=== PATIENT | male | born 1945 | race Caucasian/White ===

== ENCOUNTER 2017-04-12 16:09 | Inpatient (IN) ==
[2017-04-12] MEDS ORDERED: LIDOCAINE 1%/EPI INJ 20 ML VIAL ONE (16:42)
--- NOTE | 2017-04-12 17:24 | General Surg History&Physical ---
Assessment and Plan - Time spent with patient Time spent with patient: Less than 30 minutes (1) Soft tissue neoplasm Status: Acute Assessment and plan: The nature of this tumor is unknown. It is unclear if it is benign or malignant. The extent of it is not clear and we need to further delineate this with CT scan. Clearly this will need to be resected. Coverage in this area may be problematic over his sternum. He may require a local flap. (2) Hemorrhage Status: Acute Assessment and plan: The active bleeding appears to be controlled and he is awake alert and stable. We will need to monitor for bleeding. We will need to check coagulation studies. We will check lab work. History of Present Illness Chief complaint: Bleeding from chest History of present illness: Mr. Schumacher is a 71 year old male Who says that he has not been to a doctor in 40 years. He says for about 2 years he has had an enlarging mass in the center of his chest and has not had problems with it however it is become more irritated and painful. He acutely began bleeding from it today and was transported by EMS with active bleeding from this mass. He was brought into the emergency department and his bleeding was controlled with cautery by the emergency physicians. Bleeding has since stopped. The mass has not been painful. He has not had syncope and does not feel like he needs to pass out. Medical,Surgical,& Family Hx - Medical History Rheumatology: History of;: Gout - Surgical History Surgical History: noncontributory - Family History Family History: noncontributory - Social History Smoking Status: Unknown if ever smoked Frequency of Alcohol Use: None Type of Drug Use: None Exam - Constitutional Vitals: Period Temp Pulse Resp BP Sys/King Pulse Ox Last 24 Hr 98.9 F-98.9 F 73-77 15-19 138-172/88-103 100-100 General appearance: no acute distress - Head Head exam: Present: normocephalic - Eye Eye exam: Absent: scleral icterus - ENT Mouth exam: Present: normal voice - Neck Neck exam: Present: trachea midline. Absent: lymphadenopathy, tenderness - Respiratory Respiratory exam: Present: clear to auscultation bilaterally, other (There is about a 7 cm exophytic friable mass just to the right of the midline at the costal sternal border. This is friable and nontender. There are cauterized surfaces and now no active bleeding. It seems to be mobile but appears that it may extend all the way down to the sternum.). Absent: accessory muscle use - Cardiovascular Cardiovascular exam: Present: RRR - GI/Abdominal GI/Abdominal exam: Present: normal bowel sounds, soft. Absent: distended, tenderness, rebound - Extremities Exam Extremities exam: Present: other (He has extensive gouty appearing deformities of both hands) - Neurological Exam Neurological exam: Present: alert, oriented X3. Absent: motor sensory deficit Speech: Present: normal - Skin Skin exam: Present: normal color - Constitutional Constitutional: Absent: anorexia, chills, fever(s), weight loss - Cardiovascular Cardiovascular: Absent: chest pain at rest, chest pain with activity, dyspnea, dyspnea on exertion, syncope - Respiratory Respiratory: Absent: dyspnea, hemoptysis, dyspnea on exertion - Gastrointestinal Gastrointestinal: Absent: abdominal pain, hematemesis, hematochezia, nausea, vomiting - Genitourinary Genitourinary: Absent: hematuria - Neurological Neurological: Absent: focal weakness, syncope - Endocrine Endocrine: Absent: polyuria Hematologic/Lymphatic: Present: easy bleeding. Absent: easy bruising Results - Diagnostic Findings Procedure: CT - chest: pending
[2017-04-12 17:26] LABS: Basophils % 0.5 % (0.0-0.8); Eosinophils # 0.2 10*3/uL (0.0-0.87); Eosinophils % 2.4 % (0.00-10.9); Hematocrit 33.5 VOL% (42.0-52.0); Hemoglobin 10.6 GM/DL (14.0-18.0); Immature Granulocytes % 0.4 %; Immature Granulocytes Absolute 0.03 #; Lymphocytes # 1.7 10*3/uL (1.4-4.0); Lymphocytes % 19.9 % (21.2-54.2); Mean Corpuscular HGB Conc 31.6 GM/DL (32-36); Mean Corpuscular Hemoglobin 29 PG (27-34); Mean Corpuscular Volume 90.1 FL (87-102); Mean Platelet Volume 10.1 FL (9.6-12.0); Monocytes # 0.7 10*3/uL (0.11-0.8); Monocytes % 8.7 % (1.7-12.7); Neutrophils # 5.8 10*3/uL (1.4-7.4); Neutrophils % 68.1 % (38.7-73.9); Platelet Count 245 T/CUMM (130-400); Red Blood Count 3.72 MC/CUMM (3.8-5.5); Red Cell Distribution Width 15.7 % (9.3-17.3); White Blood Count 8.5 T/CUMM (4-12)
[2017-04-12] MEDS ORDERED: ONDANSETRON 4 MG/2 ML VIAL IV PRN (17:28)
--- NOTE | 2017-04-12 17:32 | Emergency Department Note ---
Niranjan Altman Mantricia, am scribing for, and in the presence of, Golden Hardy MD 17:15. Hayely Altman Phillip K, MD, personally performed the services described in this documentation, ascribed by Vesna Ureña in my presence, and it is both accurate and complete 732 . Arrival - Arrival Chief Complaint: Non-Specific ED Nursing Triage Note: Pt arrived via ems with complaint of tumor that was outside of chest rupturing. EMS reports arterial spraying of blood from tumor. Estimated blood loss 500- 1000 ml per ems. Mode of Arrival: Stretcher Limitations: No Limitations Source: Patient - History of Present Illness HPI Narrative: Pt is a 71 y/o white male arriving to ED by EMS with c/o a ruptured chest tumor that onset 0800 today. Pt states that he was tearing a Gatorade from the case and maybe applied to much pressure on his chest and the tumor burst. He states that he tried to stop the bleeding but was never successful. Pt reports that the area had bled before; however, he has been able to stop the bleeding in the past. EMS reports that pt potentially lost a liter of blood. Pt states that although the tumor has been there for years, he has never considered seeing a doctor for it. He also reports that he has not seen a doctor in more than 4 years. 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 He reports no other complaints to ED. Onset (ago): year(s) Consistency: constant Severity: severe Severity scale (1-10): 3 Home Medications: Home Medications Medication Instructions Recorded Confirmed Type No Known Home Medications [No 04/12/17 04/12/17 History Known Home Medications] Review of System - Review of System 12 point system: reviewed and no additional remarkable complaints except as stated - Review of System Constitutional: Present: other (tumor on chest). Absent: chills, diaphoresis Eyes: Absent: discharge, pain Respiratory: Absent: cough Cardiovascular: Absent: chest pain Gastrointestinal: Absent: abdominal pain, nausea, vomiting, diarrhea Genitourinary male: Absent: urgency Musculoskeletal: Present: other (tophaceous gout) Medical,Surgical,& Family Hx - Social History Smoking Status: Unknown if ever smoked Frequency of Alcohol Use: None Type of Drug Use: None Exam Vital Signs: Vital Signs Temperature 98.9 F 04/12/17 16:13 Pulse Rate 73 04/12/17 16:28 Respiratory Rate 19 04/12/17 16:28 Blood Pressure 138/88 04/12/17 16:28 O2 Sat by Pulse Oximetry 100 04/12/17 16:28 - General General appearance: alert, in no apparent distress - Head Head exam: Present: atraumatic, normocephalic, normal inspection - Eye Eye exam: Present: normal appearance, PERRL, EOMI - ENT ENT exam: Present: normal exam, normal oropharynx, mucous membranes moist, TM's normal bilaterally, normal external ear exam - Neck Neck exam: Present: normal inspection, full ROM, trachea midline. Absent: tenderness - Respiratory Respiratory exam: Present: normal lung sounds bilaterally - Cardiovascular Cardiovascular exam: Present: regular rate, normal rhythm, normal heart sounds - Abdominal Exam Abdominal exam: Present: soft, normal bowel sounds. Absent: distention, tenderness, guarding, rebound - Back Exam Back exam: Present: normal inspection, full ROM. Absent: tenderness - Neurological Exam Neurological exam: Present: alert, oriented X3, CN II-XII intact, normal gait, reflexes normal - Psychiatric Psychiatric exam: Present: normal affect, normal mood - Skin Skin exam: Present: warm, dry, intact, normal color Course Course Narrative: Patient presented to the ED with bleeding from a chest wall mass. According to paramedics he apparently lost greater than 500 cc of blood at his house. Area was infiltrated with lidocaine with epinephrine. Patient had several arterial bleeders that were controlled with silver nitrate and electrocauterization. Dr. Kerline Wing was consulted and he will admit for excision of chest wall mass. There is no bleeding noted at the present time. 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 Churchill
[2017-04-12 17:45] LABS: Alanine Aminotransferase 16 U/L (16-61); Albumin 3.5 G/DL (3.4-5.0); Alkaline Phosphatase 71 U/L (45-117); Aspartate Amino Transferase 21 U/L (0-37); Bilirubin,Total < 0.39 MG/DL (0.2-1.0); Blood Urea Nitrogen 23 MG/DL (7-18); Calcium 7.9 MG/DL (8.5-10.1); Glucose 106 MG/DL (74-106); Osmolality,Calculated 282.4 MOS/KG (273-304); Potassium 4.2 MMOL/L (3.5-5.1); Sodium 140 MMOL/L (136-145); Total Protein 8.5 G/DL (6.4-8.3)
--- NOTE | 2017-04-12 18:30 | CT Report ---
CT chest wo con Indication: "Tumors on chest" CT CHEST WITHOUT CONTRAST DLP: 355 mGy*cm. One or more of the following dose reduction techniques was used: Automated exposure control, adjustment of the mA and/or kV according the patient size, or use of iterative reconstruction techniques. Comparison: None Technique: Axial noncontrast CT images of the chest were obtained. Findings: Normal heart size. No mediastinal adenopathy. No bulky hilar lymphadenopathy. Extensive coronary artery calcifications and calcified atheromatous disease of the aorta noted. There is some scarring of the lung bases which are otherwise clear. Pleural spaces are clear. There is a pedunculated 50 x 30 mm mass arising from the skin anterior mid chest wall. At least a portion of this appears to invade the underlying fat. No other skin lesions are identified. Bilateral axillary lymphadenopathy is present. Largest lymph node on the right is 15 mm short axis and on the left 15 mm. Degenerative changes thoracic spine noted. No infiltrative bone lesions are seen. Limited views of the upper abdomen appear relatively benign. Impression: 1. Large cutaneous mass anterior chest wall measuring 50 x 30 mm in size. Stranding extends in the subcutaneous fat. 2. Bilateral axillary lymphadenopathy. 3. Extensive calcified atheromatous disease. PROCEDURE INTERPRETED AT [facility] DEPARTMENT OF RADIOLOGY Final Report Signed by: Lobo Osman M.D.
--- NOTE | 2017-04-12 18:33 | XRay Report ---
XR chest 1V portable Indication: Shortness of breath and fever. Chest one view: Comparison 04/02/2010. Heart size remains borderline enlarged with stable mediastinal contour. Scarring at the medial right lung base is unchanged from earlier exam. No infiltrates. Nipple shadows overlie both lung bases. Impression: No acute cardiopulmonary disease. Borderline cardiomegaly. PROCEDURE INTERPRETED AT [facility] DEPARTMENT OF RADIOLOGY Final Report Signed by: Lobo Osman M.D.
[2017-04-12] MEDS: LACTATED RINGERS 1,000 ML IV SCH (21:45)
[2017-04-13] MEDS: LACTATED RINGERS 1,000 ML IV SCH ×4 (10:00→21:06)
--- NOTE | 2017-04-13 10:13 | General Surgery Progress Note ---
Assessment and Plan (1) Soft tissue neoplasm Status: Acute Assessment and plan: The nature of this tumor is unknown. It is unclear if it is benign or malignant. The extent of it is not clear and we need to further delineate this with CT scan. Clearly this will need to be resected. Coverage in this area may be problematic over his sternum. He may require a local flap. 04/13: He has no complaints and has had no further bleeding during the night. He has a mass on his right hand and on his chest. Ideally we would want to have a tissue diagnosis before going ahead with definitive excision. I will do an incisional biopsy today on both of these. This will need to be done in the operating room because of the risk of bleeding. He had significant bleeding before and we will need to be able to cauterize her suture this if needed. Current Visit: Yes (2) Hemorrhage Status: Acute Assessment and plan: The active bleeding appears to be controlled and he is awake alert and stable. We will need to monitor for bleeding. We will need to check coagulation studies. We will check lab work. Current Visit: Yes Subjective Patient reports: Present: feels better. Absent: still having pain, nausea, vomiting, shortness of breath Exam - Constitutional Vitals: Period Temp Pulse Resp BP Sys/King Pulse Ox Last 24 Hr 97.5 F-98.9 F 68-91 15-23 107-172/60-118 92-100 General appearance: no acute distress - Head Head exam: Present: normocephalic - Eye Eye exam: Absent: scleral icterus - Neck Neck exam: Present: trachea midline - Respiratory Respiratory exam: Present: other (Mass is not actively bleeding). Absent: accessory muscle use - Extremities Exam Extremities exam: Present: other (He has an ulcerated nonbleeding mass on his right lateral hand dorsal surface) Results - Labs CBC & BMP: 04/12/17 17:09 04/12/17 17:09 Lab Results: I have reviewed the past 24 hour labs Quality Measures - VTE Contraindication to Pharmacological VTE Prophylaxis: High Risk of Bleeding
--- NOTE | 2017-04-13 10:23 | EKG Report ---
Stationary ECG Study [facility] Test Date: 04/13/2017 10:22:27 AM Pat Name: MILE SHELL Department: Room: 324 Gender: M [employer]: : 1945 Requested by: Lamonte Churchill Order Number: [id number] Reading MD: CHILO FORD Intervals [place] Rate: 72 P: 48 WV: 162 QRS: 55 QRSD: 82 T: 52 QT: 348 QTc: 373 Interpretive Statements SINUS RHYTHM Electronically Signed On 04-13-17 15:43:32 CDT by CHILO FORD [email or web address]
[2017-04-13] MEDS: PANTOPRAZOLE 40 MG TABLET PO SCH (10:52)
[2017-04-13] MEDS ORDERED: LIDOCAINE 1%/EPI INJ 20 ML VIAL ONE (11:18)
--- NOTE | 2017-04-13 11:35 | Hospitalist Consult Note ---
Assessment and Plan - Time spent with patient Time spent with patient: Greater than 30 minutes (1) Malignant neoplasm of chest (wall) Status: Acute Assessment and plan: Defer to surgery. Agree with removal of mass. Will initiate IV clindamycin given the foul smell. 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 Current Visit: Yes (3) Skin ulcer Status: Acute Assessment and plan: He appears to have a left medial heel ulcer and right hand dorsal surface ulcer which has a fresh scab over it. His heel ulcer has some chronic erythema around the area with no pus drainage will initiate the patient on IV clindamycin. Current Visit: Yes History of Present Illness - Consult Narrative Reason for consult: Medical management History of present illness: Mr. Schumahcer is a pleasant 71 year old male with a medical history of untreated gout who presents with ulceration of a chest mass. Patient states he has had a chest mass that has been increasing in size for the last 2 years. He has put off seeing a doctor, and has not even seen a doctor for years, given certain family circumstances until recently when the chest mass began to ulcerate. He denies any fever, weight loss or chills. 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 These are large and visible. Patient has no further complaints. He denies any shortness of breath, chest pain, nausea, vomiting, diarrhea, melena, bright blood per rectum, hematemesis, fever, chills. CC: Lamonte Churchill III., - Home Medications and Allergies Home Medications: Home Medications Medication Instructions Recorded Confirmed Type No Known Home Medications [No 04/12/17 04/12/17 History Known Home Medications] Allergies/Adverse Reactions: Allergies Allergy/AdvReac Type Severity Reaction Status Date / Time No Known Allergies Allergy Verified 04/12/17 20:14 Medical,Surgical,& Family Hx - Medical History Rheumatology: History of;: Gout, Rheumatoid Arthritis Musculoskeletal: History of: Musculoskeletal Problems (fingers enlarged with limited ROM due to arthritis and gout.) - Social History Smoking Status: Unknown if ever smoked Frequency of Alcohol Use: None Type of Drug Use: None 12 point system: reviewed and no additional remarkable complaints except as stated Exam - Constitutional Vitals: Period Temp Pulse Resp BP Sys/King Pulse Ox Last 24 Hr 97.5 F-98.9 F 68-91 15-23 107-172/60-118 92-100 General appearance: no acute distress - Head Head exam: Present: normocephalic, atraumatic - Eye Eye exam: Present: EOMI Pupils: Present: NORA - ENT ENT exam: Present: normal exam - Neck Neck exam: Present: normal inspection - Respiratory Respiratory exam: Present: clear to auscultation bilaterally. Absent: rhonchi, wheezes - Cardiovascular Cardiovascular exam: Present: regular rate and rhythm. Absent: gallop, rubs, systolic murmur - GI/Abdominal GI/Abdominal exam: Present: normal bowel sounds, soft. 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 He also has large tophi both elbows and lower extremities. He has an ulceration on the plantar surface of his right hand in addition to the medial surface of his left heel. There is also a large ulcerating mass on his anterior chest wall with a foul smell.). Absent: calf tenderness Results - Labs CBC & BMP: 04/12/17 17:09 04/12/17 17:09 Lab Results: I have reviewed the past 24 hour labs Quality Measures - VTE Contraindication to Pharmacological VTE Prophylaxis: High Risk of Bleeding
--- NOTE | 2017-04-13 12:47 | Operative Note ---
Date of procedure: 04/13/17 Pre-op diagnosis: Ulcerated bleeding mass right chest 9 x 6 cm an ulcerated lesion right hand Post-op diagnosis: same Procedure: #1 incisional biopsy large ulcerated fungating right anterior chest mass 2. Incisional biopsy of 3 x 3.5 cm ulcerated mass right hand Findings and technique: After informed consent was obtained the patient was brought to the operating room and placed in supine position. The patient's chest and right hand were prepped and draped separately incision was made on the fungating mass removing about a 1 cm piece of tissue for pathology this was then cauterized to achieve good hemostasis. The right hand was then biopsied using separate instruments and a 1 cm piece of this was removed as well and good hemostasis obtained. Dressings were applied. We will await pathology before planning definitive excision. Anesthesia: local Surgeon / Physician: Lamonte Churchill III. Estimated blood loss: minimal Specimens: other (Incisional biopsies to pathology) Condition: stable Disposition: floor Results - Labs CBC & BMP: 04/12/17 17:09 04/12/17 17:09 Discharge Plan - Discharge Medications No Action No Known Home Medications [No Known Home Medications] - Follow Up or Referral - Forms/Instructions
[2017-04-13] MEDS: CLINDAMYCIN INJ 600 MG in PREMIX 1 EACH IV SCH ×3 (14:16→23:04)
[2017-04-13] MEDS: ACETAMINOPHEN 325 MG TABLET PO PRN (20:09)
[2017-04-14] MEDS: LACTATED RINGERS 1,000 ML IV SCH ×4 (05:12→20:18)
[2017-04-14] MEDS: CLINDAMYCIN INJ 600 MG in PREMIX 1 EACH IV SCH ×4 (05:12→23:03)
--- NOTE | 2017-04-14 07:12 | Physician Query Form ---
CLICK EDIT DOCUMENT TO SELECT QUERY ANSWER --> OK --> SIGN Maria E Wilkins RN, CCDS Certified Clinical Ju[employer] Liaison W) [phone] (f) [phone] [email or web address]: Make your selection(s) from the choices in EACH section by typing an "x" and enter comments in the comment section. Please use your independent medical judgment in providing your response. This request does not imply that any particular answer is desired or expected. CLINICAL INDICATORS: (Providers should not edit this section) The medical record indicates that the patient was admitted with a soft tissue neoplasm, tophaceous gout, creatinine 2.40#, GFR of 31# and the patient is on IV 'Fs. Clarify which of the following most accurately represents the patient's renal status: ( ) Acute kidney injury (non-traumatic) ( ) Acute renal failure ( ) Acute renal failure with underlying Chronic Kidney Disease (CKD) - please provide stage below ( ) Acute renal failure with pathological renal lesion ( ) Acute renal failure with necrosis ( ) tubular ( ) medullary ( ) cortical ( ) CKD - please provide stage below ( ) End Stage Renal Disease ( ) Acute interstitial nephritis ( ) Hepatorenal syndrome ( ) Other, please specify: (x ) Clinically unable to determine Chronic Kidney Disease Stages Source: National Kidney Disease Foundation ( ) Stage I (eGFR > or = 90) ( ) Stage II (eGFR 60 - 89) ( ) Stage III (eGFR 30 - 59) ( ) Stage IV (eGFR 15 - 29) ( ) Stage V (eGFR < 15 or dialysis) COMMENTS: PLEASE ALSO DOCUMENT RESPONSE IN PROGRESS NOTES AND/OR DISCHARGE SUMMARY Use of terms such as suspected, likely, or probable (associated with a specific diagnosis that is being evaluated, monitored, or treated as if it exists) are acceptable and can be restated in the discharge summary if not ruled out. MTDD
[2017-04-14 07:23] LABS: Calcium 8.5 MG/DL (8.5-10.1); Potassium 4.3 MMOL/L (3.5-5.1)
[2017-04-14] MEDS: PANTOPRAZOLE 40 MG TABLET PO SCH (08:31)
--- NOTE | 2017-04-14 08:51 | General Surgery Progress Note ---
Assessment and Plan (1) Soft tissue neoplasm Status: Acute Assessment and plan: The nature of this tumor is unknown. It is unclear if it is benign or malignant. The extent of it is not clear and we need to further delineate this with CT scan. Clearly this will need to be resected. Coverage in this area may be problematic over his sternum. He may require a local flap. 04/13: He has no complaints and has had no further bleeding during the night. He has a mass on his right hand and on his chest. Ideally we would want to have a tissue diagnosis before going ahead with definitive excision. I will do an incisional biopsy today on both of these. This will need to be done in the operating room because of the risk of bleeding. He had significant bleeding before and we will need to be able to cauterize her suture this if needed. 04/14: He feels well and has had no further bleeding. He is not having pain. I reviewed the pathology slides with pathology this morning and this lesion on his chest which should been hemorrhaging and bring him to the hospital looks like a basal cell carcinoma. This is consistent with pathology that I found from back [place] [address] Myles remove the larger lesion from his left chest. This looks like a separate primary. I wanted to make sure that this was not a melanoma or soft tissue tumor that required addressing his lymph nodes. I think we can go ahead and excise this in the procedure and risk of been discussed in detail with the patient. We will do this today so that we can get him home and reduce the risk of bleeding from this mass Current Visit: Yes (2) Hemorrhage Status: Acute Assessment and plan: The active bleeding appears to be controlled and he is awake alert and stable. We will need to monitor for bleeding. We will need to check coagulation studies. We will check lab work. Current Visit: Yes Subjective Patient reports: Present: feels better. Absent: nausea, vomiting, shortness of breath Exam - Constitutional Vitals: Period Temp Pulse Resp BP Sys/King Pulse Ox Last 24 Hr 97.5 F-99.2 F 64-86 16-20 112-188/56-93 94-100 General appearance: no acute distress - Respiratory Respiratory exam: Present: other. Absent: accessory muscle use Results - Labs CBC & BMP: 04/12/17 17:09 04/14/17 06:20 Lab Results: I have reviewed the past 24 hour labs Quality Measures - VTE Contraindication to Mechanical VTE Prophylaxis: Vascular Ulceration
--- NOTE | 2017-04-14 10:03 | Hospitalist Progress Note ---
Assessment and Plan - Time spent with patient Time spent with patient: Greater than 30 minutes (1) Malignant neoplasm of chest (wall) Status: Acute Assessment and plan: Defer to surgery. Continue IV antibiotics and he is to return to the OR today. 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 Current Visit: Yes (3) Skin ulcer Status: Acute Assessment and plan: He appears to have a left medial heel ulcer and right hand dorsal surface ulcer which has a fresh scab over it. His heel ulcer has some chronic erythema around the area with no pus drainage. Will continue clindamycin. Current Visit: Yes Hospitalist: Subjective Interval history: Patient feels fine this morning. Yesterday he had a biopsy of the chest mass which is most likely basal cell carcinoma and is returning to the OR today. Exam - Constitutional Vitals: Period Temp Pulse Resp BP Sys/King Pulse Ox Last 24 Hr 97.5 F-99.2 F 64-86 16-20 112-188/56-93 94-100 General appearance: no acute distress - Head Head exam: Present: normocephalic, atraumatic - Eye Eye exam: Present: EOMI Pupils: Present: NORA - ENT ENT exam: Present: normal exam - Neck Neck exam: Present: normal inspection - Respiratory Respiratory exam: Present: clear to auscultation bilaterally. Absent: rhonchi, wheezes - Cardiovascular Cardiovascular exam: Present: regular rate and rhythm. Absent: gallop, rubs, systolic murmur - GI/Abdominal GI/Abdominal exam: Present: normal bowel sounds, soft. Absent: distended, firm , guarding, tenderness, rebound - Extremities Exam Extremities exam: Present: normal inspection, other (Upper extremities with gout tophi and disfigurement. Chest mass.). Absent: calf tenderness, edema Results - Labs CBC & BMP: 04/12/17 17:09 04/14/17 06:20 Lab Results: I have reviewed the past 24 hour labs Quality Measures - VTE Contraindication to Mechanical VTE Prophylaxis: Vascular Ulceration
[2017-04-14] MEDS ORDERED: BUPIVACAINE MPF 0.25% /EPI 30 ML VIAL ONE (10:44)
[2017-04-14] MEDS ORDERED: LIDOCAINE 1%/EPI INJ 20 ML VIAL ONE (10:44)
[2017-04-14] MEDS ORDERED: PANTOPRAZOLE 40 MG VIAL IV ONE (11:03)
[2017-04-14] MEDS ORDERED: PROPOFOL 200 MG/20 ML VIAL IV ONE (12:05)
[2017-04-14] MEDS ORDERED: LIDOCAINE 2% 5 ML VIAL ONE (12:05)
[2017-04-14] MEDS ORDERED: MINERAL OIL (TOPICAL) 25 ML BOTTLE TOP ONE (12:41)
--- NOTE | 2017-04-14 12:54 | Operative Note ---
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 After successful induction of general anesthesia the patient's chest was prepped and draped in usual sterile fashion. Local anesthesia was infiltrated around the lesion which had an exudative material over it surface and was very friable. This measured at 5.5 cm wide by 9 cm vertically. A vertically oriented ellipse was made with 1 cm margins around the lesion and this was carried full thickness in the subcutaneous fat and the specimen removed. It was marked for orientation and sent to pathology who looked the specimen and felt that we had good margins are around the lesion and deep to the lesion. In excising this there was large arterial perforators extending into the base of the tumor and these had to be secured with 3-0 Vicryl [id number] sutures. Meticulous hemostasis was maintained. As I excised this lesion the defect sprung open to be 9.5 cm wide. This was a bit unexpected and I had thought that we could probably do a local rotational advancement flap for closure though this did not appear to be feasible. I was very reluctant to try doing an extensive flap or skin graft without knowing the definitive status of her margins and also the tumor itself seems somewhat colonized and contaminated. I elected to irrigate the wound and pack it open with moist saline gauze with plans to come back for definitive closure. There was no exposed fascia or periosteum. There was a healthy- appearing subcutaneous tissue at the base of the wound. Anesthesia: AVRILA, local Surgeon / Physician: Lamonte Churchill III. Estimated blood loss: other (50 mL) Specimens: other (Skin and subcutaneous tissue containing tumor to pathology) Condition: stable Disposition: PACU Results - Labs CBC & BMP: 04/12/17 17:09 04/14/17 06:20 Discharge Plan - Discharge Medications No Action No Known Home Medications [No Known Home Medications] - Follow Up or Referral - Forms/Instructions
[2017-04-14] MEDS ORDERED: HYDROmorphone 2 MG/1 ML VIAL IV PRN (13:12)
[2017-04-14] MEDS ORDERED: ONDANSETRON 4 MG/2 ML VIAL IV PRN (13:12)
--- NOTE | 2017-04-14 13:14 | Anesthesia Post-Op ---
Anesthesia Post OP - Post Ansesthetic Evaluation Patient seen in post op: Yes Resp: within normal limits CV: within normal limits Mental: within normal limits Temp: within normal limits [id number]: within normal limits Nausea and Vomiting: within normal limits Pain: within normal limits
[2017-04-14] MEDS ORDERED: SEVOFLURANE 1 UNIT/15 MINUTE INH ONE (13:17)
[2017-04-14] MEDS ORDERED: MIDAZOLAM 2 MG/2 ML VIAL ONE (13:17)
[2017-04-14] MEDS ORDERED: fentaNYL 100 MCG/2 ML VIAL ONE (13:17)
[2017-04-14] MEDS ORDERED: LACTATED RINGERS 1,000 ML IV SCH (13:30)
--- NOTE | 2017-04-14 14:33 | Nephrology Consult Note ---
History of Present Illness Chief complaint: Renal insufficiency History of present illness: Mr. Schumacher is a 71 year old male admitted with bleeding from an anterior chest wall mass. He has undergone excision of this mass which was a basal cell carcinoma. He was noted to have renal insufficiency at the time of admission. He is not seeing a physician in many years and has no known history of renal failure. He admits to having nephrolithiasis over 20 years ago. No stones since then. He denies obstructive symptoms or dysuria. He does have gout and has taken [id number] NSAIDs. Home Medications Medication Instructions Recorded Confirmed Type No Known Home Medications [No 04/12/17 04/12/17 History Known Home Medications] Allergies Allergy/AdvReac Type Severity Reaction Status Date / Time No Known Allergies Allergy Verified 04/12/17 20:14 Medical,Surgical,& Family Hx - Medical History Rheumatology: History of;: Gout, Rheumatoid Arthritis Musculoskeletal: History of: Musculoskeletal Problems (fingers enlarged with limited ROM due to arthritis and gout.) - Social History Smoking Status: Unknown if ever smoked Frequency of Alcohol Use: None Type of Drug Use: None Review of Systems 12 point system: reviewed and no additional remarkable complaints except as stated Exam - Vital Signs Vital signs: Period Temp Pulse Resp BP Sys/King Pulse Ox Last 24 Hr 97.5 F-99.2 F 64-99 16-20 112-160/56-103 94-100 Exam: Gen.: Alert and oriented x3. ENT: Pupils equal round reactive to light. EOMs intact. Mucous membranes moist. Neck: Supple. No JVD or bruit. Cardiovascular: Regular rate and rhythm. No murmur rub or gallop. Surgical dressing over the sternum Lungs: Clear Abdomen: Soft. Nontender. Positive bowel sounds. No organomegaly Extremities: No edema. 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 Tophi present over the elbows Results - Labs CBC & BMP: 04/12/17 17:09 04/14/17 06:20 Assessment and Plan (1) Chronic renal failure Status: Acute Assessment and plan: 71-year-old man admitted with: * Basal cell carcinoma, chest. Status post resection * Chronic renal failure. Baseline creatinine is not known. Ultrasound and urinalysis ordered * Gout * Rheumatoid arthritis Current Visit: Yes (2) Rheumatoid arthritis Status: Acute Current Visit: Yes (3) Gout Status: Acute Current Visit: Yes (4) Malignant neoplasm of chest (wall) Status: Acute Current Visit: Yes
--- NOTE | 2017-04-14 15:39 | Ultrasound Report ---
US renal Bilateral Indication: Chronic renal failure. RENAL ULTRASOUND: Grayscale and color Doppler imaging the kidneys performed. Right kidney measures 120 x 46 x 37 mm. Left kidney measures 106 x 48 x 47 mm. No hydronephrosis, mass, cyst or calcification identified on either side. Color Doppler flow at both renal mingo documented. Both kidneys demonstrate somewhat heterogeneous and increased echotexture throughout, with slightly lobulated contours. Impression: Nonspecific increased and heterogeneous echotexture of the kidneys consistent with medical renal disease. No obstructive pathology. PROCEDURE INTERPRETED AT [facility] DEPARTMENT OF RADIOLOGY Final Report Signed by: Lobo Osman M.D.
[2017-04-14 16:37] LABS: Apearance,Urine CLEAR (Clear); Bilirubin,Urine Negative (Negative); Blood, Urine Negative (Negative); Glucose,Urine (UA) Negative (Negative); Ketones,Urine Negative (Negative); Nitrite,Urine Negative (Negative); Protein,Urine Negative; RBC,Urine <1 /HPF (0-4); Urine Color Straw (Yellow); Urine Specific Gravity 1.006 (1.001-1.035); Urine Urobilinogen < 2.0 EU/DL (0.2-1.0)
--- NOTE | 2017-04-14 17:17 | Pathology Report from [facility] ---
[facility] ACCESSION # : [id number] PATIENT NAME : Shyam Schumacher ORDERING DR : SHAYLA BOSE III, MD CLINICAL HX: Chest soft tissue neoplasm - Right hand mass POST-OP DX: Same SPECIMEN INFO: #1 Chest tissue biopsy #2 Right hand biopsy GROSS DESCRIPTION: #1 Received in formalin labeled with the patients name SHYAM SCHUMACHER and #1 consists of a 1.1 x 0.8 cm hyperemic stevenson tissue fragment. Bisected and submitted in cassette #1.#2 Received in formalin labeled with the patients name SHYAM SCHUMACHER and #2 consists of three hyperemic stevenson-brown soft tissue fragments collectively measuring 1.4 x 0.6 cm. Submitted in cassette #2. DIAGNOSIS FOR SHYAM SCHUMACHER: #1 CHEST, BIOPSY: Ulcerated nodular basal cell carcinoma extending to specimen margins.#2 RIGHT HAND, BIOPSY: Ulcerated nodular basal cell carcinoma extending to specimen margins. COLLECTED DATE: 04/13/2017 [facility] REPORT DATE: 04/14/2017 ELECTRONICALLY SIGNED BY: Pramod Healy III, M.D. 04/14/2017 - 13:15:12 [facility] CENTERSeamus
[2017-04-15] MEDS: LACTATED RINGERS 1,000 ML IV SCH ×3 (01:18→18:22)
[2017-04-15] MEDS: MORPHINE 2 MG/1 ML SYRINGE IV PRN (03:43)
[2017-04-15 03:45] LABS: Basophils % 0.3 % (0.0-0.8); Eosinophils # 0.2 10*3/uL (0.0-0.87); Eosinophils % 3.2 % (0.00-10.9); Hematocrit 22.8 VOL% (42.0-52.0); Hemoglobin 6.8 GM/DL (14.0-18.0); Immature Granulocytes % 0.3 %; Immature Granulocytes Absolute 0.02 #; Lymphocytes # 1.9 10*3/uL (1.4-4.0); Lymphocytes % 29.6 % (21.2-54.2); Mean Corpuscular HGB Conc 29.8 GM/DL (32-36); Mean Corpuscular Hemoglobin 27 PG (27-34); Mean Corpuscular Volume 90.1 FL (87-102); Mean Platelet Volume 10.5 FL (9.6-12.0); Monocytes # 0.8 10*3/uL (0.11-0.8); Monocytes % 11.5 % (1.7-12.7); Neutrophils # 3.6 10*3/uL (1.4-7.4); Neutrophils % 55.1 % (38.7-73.9); Platelet Count 187 T/CUMM (130-400); Red Blood Count 2.53 MC/CUMM (3.8-5.5); Red Cell Distribution Width 15.6 % (9.3-17.3); White Blood Count 6.5 T/CUMM (4-12)
[2017-04-15 04:13] LABS: Calcium 8.1 MG/DL (8.5-10.1); Osmolality,Calculated 286.1 MOS/KG (273-304)
[2017-04-15] MEDS: CLINDAMYCIN INJ 600 MG in PREMIX 1 EACH IV SCH (05:19)
--- NOTE | 2017-04-15 05:50 | Event Note ---
No events overnight. Patient is resting comfortably in bed. Examination of his chest reveals a wound is clean with no evidence of infection and there is some bleeding on the gauze is removed with is controlled with direct pressure. Hemoglobin is down to 6.8. We will recheck this this morning and also get a type and screen with plan for transfusion if the repeat is confirming that the level is below 7 on the hemoglobin
[2017-04-15 06:24] LABS: Hematocrit 23.2 VOL% (42.0-52.0)
[2017-04-15 06:43] LABS: PT Patient Result 10.9 SECS; Partial Thromboplastin Time 29.4 SECS (0-40)
[2017-04-15] MEDS ORDERED: SODIUM CHLORIDE 0.9% 250 ML IV PRN (09:30)
[2017-04-15] MEDS: PANTOPRAZOLE 40 MG TABLET PO SCH (10:03)
[2017-04-15 10:12] LABS: % Iron Saturation 7.7 % (18-50); Ferritin 33.5 ng/ml (26-388)
[2017-04-15] MEDS: PIPERACILLIN/TAZOBACTAM 3,375 MG in SODIUM CHLORIDE 0.9% 100 ML IV SCH ×2 (10:46→18:32)
--- NOTE | 2017-04-15 10:59 | Hospitalist Progress Note ---
Assessment and Plan - Time spent with patient Time spent with patient: Greater than 30 minutes (1) Malignant neoplasm of chest (wall) Status: Acute Assessment and plan: Defer to surgery. S/P excision. BCC. Current Visit: Yes (2) Gout Status: Acute Assessment and plan: Start allopurinol. Current Visit: Yes (3) Skin ulcer Status: Acute Assessment and plan: Will switch to Zyvox and Zosyn. Obtain MRI of both feet Current Visit: Yes Hospitalist: Subjective Interval history: No complaints or overnight events. Exam - Constitutional Vitals: Period Temp Pulse Resp BP Sys/King Pulse Ox Last 24 Hr 97.5 F-99.9 F 72-108 15-20 90-167/49-103 93-100 General appearance: no acute distress - Head Head exam: Present: normocephalic, atraumatic - Eye Eye exam: Present: EOMI Pupils: Present: NORA - ENT ENT exam: Present: normal exam - Neck Neck exam: Present: normal inspection - Respiratory Respiratory exam: Present: clear to auscultation bilaterally. Absent: rhonchi, wheezes - Cardiovascular Cardiovascular exam: Present: regular rate and rhythm. Absent: gallop, rubs, systolic murmur - GI/Abdominal GI/Abdominal exam: Present: normal bowel sounds, soft. Absent: distended, firm , guarding, tenderness, rebound - Extremities Exam Extremities exam: Present: other (left achilles tendon area wound, foul smelling and purulent drainage. Right second toe wound.). Absent: calf tenderness, edema - Skin Skin exam: Present: other (large area of debridement on chest wall.) Results - Labs CBC & BMP: 04/15/17 06:04 04/15/17 02:56 Lab Results: I have reviewed the past 24 hour labs Quality Measures - VTE Contraindication to Mechanical VTE Prophylaxis: Vascular Ulceration
--- NOTE | 2017-04-15 12:10 | Nephrology Progress Note ---
Nephrology - PN: Subj Interval history: He is awake and alert. He denies shortness of breath. No new symptoms Exam (PN)-Nephrology - Vital Signs Vital signs: Period Temp Pulse Resp BP Sys/King Pulse Ox Last 24 Hr 97.5 F-99.9 F 71-108 15-20 90-167/49-103 93-100 Exam: ENT: Normal Cardiovascular: Regular rate and rhythm. No murmur rub or gallop Lungs: Clear Extremities: No edema - Lab 04/15/17 06:04 04/15/17 02:56 Most recent lab results Calcium 8.1 MG/DL (8.5-10.1) L 04/15/17 02:56 Assessment and Plan (1) Chronic renal failure Status: Acute Assessment and plan: 71-year-old man admitted with: * Basal cell carcinoma, chest. Status post resection * Chronic renal failure. Creatinine stable. Ultrasound shows chronic renal insufficiency. Urinalysis negative for protein or cells. He should avoid NSAIDs in the future * Gout Current Visit: Yes (2) Rheumatoid arthritis Status: Acute Current Visit: Yes (3) Gout Status: Acute Current Visit: Yes (4) Malignant neoplasm of chest (wall) Status: Acute Current Visit: Yes
[2017-04-15] MEDS: LINEZOLID INJ 600 MG in PREMIX 1 EACH IV SCH (15:03)
[2017-04-15] MEDS: ALLOPURINOL 100 MG TABLET PO SCH (20:09)
[2017-04-15 20:33] LABS: Hematocrit 31.1 VOL% (42.0-52.0); Hemoglobin 9.9 GM/DL (14.0-18.0)
[2017-04-16] MEDS: LACTATED RINGERS 1,000 ML IV SCH ×2 (00:44→10:20)
[2017-04-16] MEDS: LINEZOLID INJ 600 MG in PREMIX 1 EACH IV SCH ×2 (01:29→17:00)
[2017-04-16] MEDS: PIPERACILLIN/TAZOBACTAM 3,375 MG in SODIUM CHLORIDE 0.9% 100 ML IV SCH ×3 (02:42→18:58)
[2017-04-16 02:50] LABS: Magnesium 1.3 MG/DL (1.8-2.4); Potassium 3.9 MMOL/L (3.5-5.1)
[2017-04-16 03:41] LABS: Basophils % 0.3 % (0.0-0.8); Eosinophils # 0.2 10*3/uL (0.0-0.87); Eosinophils % 1.9 % (0.00-10.9); Hematocrit 31.1 VOL% (42.0-52.0); Hemoglobin 9.8 GM/DL (14.0-18.0); Immature Granulocytes % 0.3 %; Immature Granulocytes Absolute 0.02 #; Lymphocytes # 1.8 10*3/uL (1.4-4.0); Mean Corpuscular HGB Conc 31.5 GM/DL (32-36); Mean Corpuscular Hemoglobin 28 PG (27-34); Mean Corpuscular Volume 88.6 FL (87-102); Mean Platelet Volume 10.4 FL (9.6-12.0); Monocytes # 0.9 10*3/uL (0.11-0.8); Monocytes % 11.6 % (1.7-12.7); Neutrophils # 4.9 10*3/uL (1.4-7.4); Neutrophils % 62.9 % (38.7-73.9); Platelet Count 185 T/CUMM (130-400); Red Blood Count 3.51 MC/CUMM (3.8-5.5); Red Cell Distribution Width 15.4 % (9.3-17.3); White Blood Count 7.8 T/CUMM (4-12)
[2017-04-16] MEDS: ALLOPURINOL 100 MG TABLET PO SCH ×2 (08:56→20:57)
[2017-04-16] MEDS: PANTOPRAZOLE 40 MG TABLET PO SCH (08:56)
[2017-04-16] MEDS: SODIUM HYPOCHLORITE 0.25% IRRIG 473 ML BOTTLE TOP SCH (08:58)
--- NOTE | 2017-04-16 09:19 | Event Note ---
The patient received a blood transfusion yesterday which she responded to appropriately. There is no further bleeding from the wound. The dressings were taken down today and he has a small rim of reactive erythema but no evidence of invasive infection and no gangrenous tissue. Continue local wound care. Follow up final pathology.
[2017-04-16] MEDS ORDERED: MAGNESIUM SULF RIDER 4 GM in PREMIX 1 EACH IV ONE (09:27)
--- NOTE | 2017-04-16 13:11 | Hospitalist Progress Note ---
Assessment and Plan - Time spent with patient Time spent with patient: Greater than 30 minutes (1) Malignant neoplasm of chest (wall) Status: Acute Assessment and plan: Defer to surgery. S/P excision. BCC. Current Visit: Yes (2) Gout Status: Acute Assessment and plan: Start allopurinol. Current Visit: Yes (3) Skin ulcer Status: Acute Assessment and plan: Will switch to Zyvox and Zosyn. Obtain MRI of both feet Current Visit: Yes Hospitalist: Subjective Interval history: No complaints or overnight events. Exam - Constitutional Vitals: Period Temp Pulse Resp BP Sys/King Pulse Ox Last 24 Hr 97.8 F-100.5 F 70-88 14-20 115-169/62-93 95-100 General appearance: no acute distress - Head Head exam: Present: normocephalic, atraumatic - Eye Eye exam: Present: EOMI Pupils: Present: NORA - ENT ENT exam: Present: normal exam - Neck Neck exam: Present: normal inspection - Respiratory Respiratory exam: Present: clear to auscultation bilaterally. Absent: rhonchi, wheezes - Cardiovascular Cardiovascular exam: Present: regular rate and rhythm. Absent: gallop, rubs, systolic murmur - GI/Abdominal GI/Abdominal exam: Present: normal bowel sounds, soft. Absent: distended, firm , guarding, tenderness, rebound - Extremities Exam Extremities exam: Present: normal inspection, other (chest excision wound. Lower extremities within surgical dressing). Absent: calf tenderness, edema Results - Labs CBC & BMP: 04/16/17 01:53 04/16/17 01:53 Lab Results: I have reviewed the past 24 hour labs Quality Measures - VTE Contraindication to Mechanical VTE Prophylaxis: Vascular Ulceration
--- NOTE | 2017-04-16 13:35 | Nephrology Progress Note ---
Nephrology - PN: Subj Interval history: No new symptoms today Exam (PN)-Nephrology - Vital Signs Vital signs: Period Temp Pulse Resp BP Sys/King Pulse Ox Last 24 Hr 97.8 F-100.5 F 70-88 14-20 115-169/62-93 95-100 Exam: ENT: Normal Cardiovascular: Regular rate and rhythm. No murmur rub or gallop Lungs: Clear Extremities: No edema - Lab 04/16/17 01:53 04/16/17 01:53 Most recent lab results Calcium 8.0 MG/DL (8.5-10.1) L 04/16/17 01:53 Magnesium 1.3 MG/DL (1.8-2.4) L 04/16/17 01:53 Assessment and Plan (1) Chronic renal failure Status: Acute Assessment and plan: 71-year-old man admitted with: * Basal cell carcinoma, chest. Status post resection * Chronic renal failure. Creatinine stable. * Gout Current Visit: Yes (2) Rheumatoid arthritis Status: Acute Current Visit: Yes (3) Gout Status: Acute Current Visit: Yes (4) Malignant neoplasm of chest (wall) Status: Acute Current Visit: Yes
--- NOTE | 2017-04-16 16:32 | Magnetic Resonance Report ---
Exam: MR ankle LT wo con Date: 04/16/2017 9:54 AM Comparison: None Indication: Left Achilles tendon ulcer, history of gout Technique:[Multiple acquisitions were obtained including sagittal T1 and STIR, coronal T1 with and without fat saturation and STIR, and axial T1 and STIR scans. Scans were obtained on a 1.5 Mira magnet.] Findings: Unfortunately the scans are degraded by motion artifact. Small ankle joint effusion. There are multiple T1 hypointensities throughout the joint spaces and along the tendons, especially the Achilles tendon and anterior tibial tendon. The finding at the level of the Achilles tendon involves a 50 x 22 x 17 mm area. No evidence of fracture or osteomyelitis with extensive marginal erosions.. Soft tissue edema with reported skin ulceration medial to the Achilles tendon. Calcaneal osteophytes are noted. Impression: Motion artifact. Small ankle joint effusion with no fracture or osteomyelitis. 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 The extensive involvement of the Achilles tendon makes it difficult to exclude a prior prior partial tear. No evidence of definite rupture. Adjacent apparent skin ulceration with soft tissue edema/fluid. PROCEDURE INTERPRETED AT [facility] DEPARTMENT OF RADIOLOGY Final Report Signed by: Dr. Анна Bryant
--- NOTE | 2017-04-16 16:33 | Magnetic Resonance Report ---
Exam: MR foot RT wo con Date: 04/16/2017 9:54 AM Comparison: None Indication: Right second toe erythema with chronic ulcer, history of gout Technique:[Multiple acquisitions were obtained including sagittal T1, STIR, coronal T1 and STIR, and axial T1, T2*GRE, and STIR scans. Scans were obtained on a 1.5 Mira magnet.] Findings: Unfortunately the scans are degraded by motion artifact. Small ankle joint effusion. Soft tissue swelling including the right second toe location with reported skin ulceration. Diffuse fluid in the plantar fascial location. No evidence of definite fracture or osteomyelitis. Hallux valgus deformity. Multiple T1 and T2 hypointensities involving most joints with marginal erosions. Findings are more pronounced at the level of the great toe and the fifth toe. Additional involvement of the tendons, especially the Achilles tendon. No evidence of definite tendon rupture. Impression: The scans are degraded by motion artifact. No evidence of definite osteomyelitis. Minimal soft tissue swelling at the level of the left second toe with reported skin ulceration. 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 Additional findings which can be seen with plantar fasciitis. PROCEDURE INTERPRETED AT [facility] DEPARTMENT OF RADIOLOGY Final Report Signed by: Dr. Анна Bryant
[2017-04-16] MEDS: ACETAMINOPHEN 325 MG TABLET PO PRN (20:51)
[2017-04-17] MEDS: LINEZOLID INJ 600 MG in PREMIX 1 EACH IV SCH ×2 (02:22→15:29)
[2017-04-17] MEDS: PIPERACILLIN/TAZOBACTAM 3,375 MG in SODIUM CHLORIDE 0.9% 100 ML IV SCH ×3 (03:29→18:18)
[2017-04-17 06:16] LABS: Calcium 8.4 MG/DL (8.5-10.1); Osmolality,Calculated 280.4 MOS/KG (273-304); Potassium 3.8 MMOL/L (3.5-5.1)
[2017-04-17] MEDS: LACTATED RINGERS 1,000 ML IV SCH ×3 (07:44→18:18)
--- NOTE | 2017-04-17 08:29 | General Surgery Progress Note ---
Assessment and Plan (1) Soft tissue neoplasm Status: Acute Assessment and plan: The nature of this tumor is unknown. It is unclear if it is benign or malignant. The extent of it is not clear and we need to further delineate this with CT scan. Clearly this will need to be resected. Coverage in this area may be problematic over his sternum. He may require a local flap. 04/13: He has no complaints and has had no further bleeding during the night. He has a mass on his right hand and on his chest. Ideally we would want to have a tissue diagnosis before going ahead with definitive excision. I will do an incisional biopsy today on both of these. This will need to be done in the operating room because of the risk of bleeding. He had significant bleeding before and we will need to be able to cauterize her suture this if needed. 04/14: He feels well and has had no further bleeding. He is not having pain. I reviewed the pathology slides with pathology this morning and this lesion on his chest which should been hemorrhaging and bring him to the hospital looks like a basal cell carcinoma. This is consistent with pathology that I found from back [place] [address] Myles remove the larger lesion from his left chest. This looks like a separate primary. I wanted to make sure that this was not a melanoma or soft tissue tumor that required addressing his lymph nodes. I think we can go ahead and excise this in the procedure and risk of been discussed in detail with the patient. We will do this today so that we can get him home and reduce the risk of bleeding from this mass Chest dressing is dry chest dressing is dry with no signs of bleeding 04/17: We have had no problems with bleeding and are awaiting pathology on the malignancy on his chest. If his margins are negative then we can look at doing a skin graft. 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 This is probably been partly destroyed by gout and venous stasis disease. This may be the source of his fever. Current Visit: Yes (2) Hemorrhage Status: Acute Assessment and plan: The active bleeding appears to be controlled and he is awake alert and stable. We will need to monitor for bleeding. We will need to check coagulation studies. We will check lab work. Current Visit: Yes Subjective Patient reports: Present: feels better, fever. Absent: pain is less Exam - Constitutional Vitals: Period Temp Pulse Resp BP Sys/King Pulse Ox Last 24 Hr 98.6 F-101.8 F 73-90 16-18 105-183/57-93 94-100 General appearance: no acute distress - Respiratory Respiratory exam: Present: other Results - Labs CBC & BMP: 04/16/17 01:53 04/17/17 05:42 Lab Results: I have reviewed the past 24 hour labs - Diagnostic Findings Procedure: MRI: report reviewed by me Quality Measures - VTE Contraindication to Mechanical VTE Prophylaxis: Vascular Ulceration
[2017-04-17] MEDS: ALLOPURINOL 100 MG TABLET PO SCH ×2 (09:18→20:58)
[2017-04-17] MEDS: PANTOPRAZOLE 40 MG TABLET PO SCH (09:18)
[2017-04-17] MEDS: SODIUM HYPOCHLORITE 0.25% IRRIG 473 ML BOTTLE TOP SCH (09:18)
--- NOTE | 2017-04-17 10:27 | Hospitalist Progress Note ---
Assessment and Plan - Time spent with patient Time spent with patient: Greater than 30 minutes (1) Malignant neoplasm of chest (wall) Status: Acute Assessment and plan: Defer to surgery. S/P excision. BCC. Current Visit: Yes (2) Cellulitis Status: Acute Assessment and plan: Recent fever. Likely due to cellulitis. Continue antibiotics. Current Visit: Yes (3) Gout Status: Acute Assessment and plan: Start allopurinol. Current Visit: Yes Hospitalist: Subjective Interval history: temperature of 101.8 overnight, no complaints. Exam - Constitutional Vitals: Period Temp Pulse Resp BP Sys/King Pulse Ox Last 24 Hr 98.6 F-101.8 F 73-90 16-18 105-183/57-93 94-100 General appearance: no acute distress - Head Head exam: Present: normocephalic, atraumatic - Eye Eye exam: Present: EOMI Pupils: Present: NORA - ENT ENT exam: Present: normal exam - Neck Neck exam: Present: normal inspection - Respiratory Respiratory exam: Present: clear to auscultation bilaterally. Absent: rhonchi, wheezes - Cardiovascular Cardiovascular exam: Present: regular rate and rhythm. Absent: gallop, rubs, systolic murmur - GI/Abdominal GI/Abdominal exam: Present: normal bowel sounds, soft. Absent: distended, firm , guarding, tenderness, rebound - Extremities Exam Extremities exam: Present: normal inspection, other (chest surgical debridement. bilateral deformity due to severe gouty tophi. All large joints involved.). Absent: calf tenderness, edema Results - Labs CBC & BMP: 04/16/17 01:53 04/17/17 05:42 Lab Results: I have reviewed the past 24 hour labs Quality Measures - VTE Contraindication to Mechanical VTE Prophylaxis: Vascular Ulceration
--- NOTE | 2017-04-17 10:52 | Physician Query Form ---
CLICK EDIT DOCUMENT TO SELECT QUERY ANSWER --> OK --> SIGN Maria E Wilkins RN, CCDS Certified Clinical Application Systems Engineer W) [phone] (f) [phone] [email or web address]: Make your selection(s) from the choices in EACH section by typing an "x" and enter comments in the comment section. Please use your independent medical judgment in providing your response. This request does not imply that any particular answer is desired or expected. CLINICAL INDICATORS: (Providers should not edit this section) The medical record indicates that the patient was admitted with a soft tissue neoplasm, had surgery, HH dropped to 6.8/ 22.8 and the patient was given 3 units of blood. Based on the above, could you clarify which of the following conditions you are evaluating, treating, and/or monitoring? ( ) Blood loss anemia ( ) acute ( ) chronic ( ) acute on chronic ( x) Acute blood loss anemia on baseline chronic anemia ( ) Acute blood loss anemia as a complication of a procedure ( ) Iron deficiency anemia not associated with blood loss ( ) Dilutional anemia due to IV fluids ( ) Anemia due to chemotherapy ( ) Anemia due to neoplastic disease ( ) Anemia due to chronic kidney disease ( ) Pernicious anemia ( ) Aplastic anemia ( ) Hemolytic anemia ( ) immune ( ) non-immune - please specify cause: ( ) Anemia due to other condition, please specify: ( ) Clinically unable to determine COMMENTS: PLEASE ALSO DOCUMENT RESPONSE IN PROGRESS NOTES AND/OR DISCHARGE SUMMARY Use of terms such as suspected, likely, or probable (associated with a specific diagnosis that is being evaluated, monitored, or treated as if it exists) are acceptable and can be restated in the discharge summary if not ruled out. MTDD
--- NOTE | 2017-04-17 11:32 | Nephrology Progress Note ---
Nephrology - PN: Subj Interval history: He has some musculoskeletal back pain today. No shortness of breath. He was febrile this morning Exam (PN)-Nephrology - Vital Signs Vital signs: Period Temp Pulse Resp BP Sys/King Pulse Ox Last 24 Hr 98.6 F-101.8 F 73-90 16-18 105-183/57-93 94-100 Exam: ENT: Normal Cardiovascular: Regular rate and rhythm. No murmur rub or gallop Lungs: Clear Extremities: No edema - Lab 04/16/17 01:53 04/17/17 05:42 Most recent lab results Calcium 8.4 MG/DL (8.5-10.1) L 04/17/17 05:42 Magnesium 1.3 MG/DL (1.8-2.4) L 04/16/17 01:53 Assessment and Plan (1) Chronic renal failure Status: Acute Assessment and plan: 71-year-old man admitted with: * Basal cell carcinoma, chest. Status post resection * Chronic renal failure. Creatinine stable. * Gout Current Visit: Yes (2) Rheumatoid arthritis Status: Acute Current Visit: Yes (3) Gout Status: Acute Current Visit: Yes (4) Malignant neoplasm of chest (wall) Status: Acute Current Visit: Yes
--- NOTE | 2017-04-17 12:26 | Pathology Report from [facility] ---
[facility] [place] : [id number] PATIENT NAME : Shyam Schumacher ORDERING DR : SHAYLA BOSE III, MD CLINICAL HX: Soft tissue neoplasm POST-OP DX: Same SPECIMEN INFO: Mid chest wall tumor, wide excision skin cancer, check margins GROSS DESCRIPTION: The specimen labeled CHEST WALL TUMOR consists of a 9.0 x 6.0 x 1.3 cm skin ellipse with a fungating mass measuring 8.0 x 7.0 x 3.0 cm. The superior margin is given the 12 oclock position with the 12-3 oclock margin inked blue, the 3-6 oclock green, the 6-9 oclock red, and the 9-12 oclock orange. Mostly the mass comes to within 0.7 cm of both the medial and lateral margins and 12-3 oclock and 9-12 oclock. Sections submitted: A and B 12-3 oclock, C thru E 3-6 oclock, F thru H 6-9 oclock, I thru K 9-12 oclock, L insurance account representative section through central tumor and deep margin. DIAGNOSIS FOR SHYAM SCHUMACHER: SKIN CHEST WALL: Ulcerated nodular basal cell carcinoma, inked specimen margins free of tumor. COLLECTED DATE: 04/14/2017 [facility] REPORT DATE: 04/17/2017 ELECTRONICALLY SIGNED BY: Pramod Healy III, M.D. 04/17/2017 - 9:38:47 [facility]ITAL[facility]
[2017-04-17] MEDS: ACETAMINOPHEN 325 MG TABLET PO PRN (16:26)
[2017-04-18] MEDS: LACTATED RINGERS 1,000 ML IV SCH ×4 (01:42→20:18)
[2017-04-18] MEDS: LINEZOLID INJ 600 MG in PREMIX 1 EACH IV SCH (02:05)
[2017-04-18] MEDS: PIPERACILLIN/TAZOBACTAM 3,375 MG in SODIUM CHLORIDE 0.9% 100 ML IV SCH ×2 (03:00→11:16)
--- NOTE | 2017-04-18 07:18 | Event Note ---
He feels well. Margins on his chest wound are negative. I think we can go ahead with a skin graft for definitive coverage. I am going to defer treatment of his hand and let him see plastic surgery as an outpatient after his discharge. His white blood cell count is normal. MRI of his ankle and foot have been noted and this all appears to be chronic destruction from long- standing gout.
[2017-04-18 07:24] LABS: Calcium 8.3 MG/DL (8.5-10.1); Osmolality,Calculated 272.8 MOS/KG (273-304)
[2017-04-18] MEDS ORDERED: DIAZEPAM 5 MG TABLET PO ONE (07:55)
[2017-04-18] MEDS: SODIUM HYPOCHLORITE 0.25% IRRIG 473 ML BOTTLE TOP SCH (08:28)
[2017-04-18] MEDS: MORPHINE 2 MG/1 ML SYRINGE IV PRN ×2 (09:02→17:43)
[2017-04-18] MEDS ORDERED: PROPOFOL 200 MG/20 ML VIAL IV ONE (11:00)
[2017-04-18] MEDS ORDERED: LIDOCAINE 100 MG/5 ML SYRINGE ONE (11:00)
--- NOTE | 2017-04-18 11:06 | Hospitalist Progress Note ---
Assessment and Plan - Time spent with patient Time spent with patient: Greater than 30 minutes (1) Malignant neoplasm of chest (wall) Status: Acute Assessment and plan: Defer to surgery. S/P excision. BCC. Current Visit: Yes (2) Cellulitis Status: Acute Assessment and plan: I do believe the patient's fever is secondary to his infection, most likely secondary to gout. Though he did have some mild cellulitis this can be treated with clindamycin. We will switch the patient from his current regimen to clindamycin. Current Visit: Yes (3) Gout Status: Acute Assessment and plan: Continue allopurinol. Current Visit: Yes Hospitalist: Subjective Interval history: Continues have very low-grade fevers. Otherwise doing well. Exam - Constitutional Vitals: Period Temp Pulse Resp BP Sys/Kign Pulse Ox Last 24 Hr 98.4 F-100.5 F 76-93 16-20 124-160/69-94 94-99 General appearance: no acute distress - Head Head exam: Present: normocephalic, atraumatic - Eye Eye exam: Present: EOMI Pupils: Present: NORA - ENT ENT exam: Present: normal exam - Neck Neck exam: Present: normal inspection - Respiratory Respiratory exam: Present: clear to auscultation bilaterally. Absent: rhonchi, wheezes - Cardiovascular Cardiovascular exam: Present: regular rate and rhythm. Absent: gallop, rubs, systolic murmur - GI/Abdominal GI/Abdominal exam: Present: normal bowel sounds, soft. Absent: distended, firm , guarding, tenderness, rebound - Extremities Exam Extremities exam: Present: normal inspection, other (Left heel wound). Absent: calf tenderness, edema - Skin Skin exam: Present: other (Large surgical incision anterior chest) Results - Labs CBC & BMP: 04/16/17 01:53 04/18/17 05:46 Lab Results: I have reviewed the past 24 hour labs Quality Measures - VTE Contraindication to Pharmacological VTE Prophylaxis: High Risk of Bleeding Specialty Discharge - Follow Up or Referrals Follow up with: Joey De La Rosa MD [Physician] - 04/20/17 10:30 am
[2017-04-18] MEDS ORDERED: MINERAL OIL (TOPICAL) 25 ML BOTTLE TOP ONE (13:01)
[2017-04-18] MEDS: ALLOPURINOL 100 MG TABLET PO SCH ×2 (13:03→21:19)
[2017-04-18] MEDS: PANTOPRAZOLE 40 MG TABLET PO SCH (13:03)
[2017-04-18] MEDS ORDERED: BACITRACIN OINT 0.9 GM PACK TOP ONE (13:09)
[2017-04-18] MEDS ORDERED: LIDOCAINE 1%/EPI INJ 20 ML VIAL ONE (13:09)
[2017-04-18] MEDS ORDERED: BUPIVACAINE MPF 0.25% /EPI 30 ML VIAL ONE (13:09)
--- NOTE | 2017-04-18 14:32 | Operative Note ---
Date of procedure: 04/18/17 Pre-op diagnosis: Large open wound mid chest Post-op diagnosis: same Procedure: Split thickness skin graft mid chest large open wound 9 x 11 cm Findings and technique: After informed consent was obtained the patient was brought the operating room placed in supine position. After successful induction of general anesthesia the patient's chest and right lower extremity were prepped and draped in usual sterile fashion. The wound was inspected and had all viable tissue. I scraped away some of the debris and clean the wound but it really did not require any debridement. A few small bleeders were cauterized. I then harvested split thickness skin graft from the right thigh taking several 5 cm wide pieces and laying these over the wound after admission at 1.5-1. Skin graft was secured in place with skin clips and a sterile bolster dressing was placed by suturing this in place with 2-0 silk sutures with a bulky dressing over the skin graft. Against the skin graft was Adaptic with antibiotic ointment. A large OpSite was placed at the skin donor site. Anesthesia: GETA, local Surgeon / Physician: Lamonte Churchill III. Estimated blood loss: none Specimens: none sent Condition: stable Disposition: PACU Results - Labs CBC & BMP: 04/16/17 01:53 04/18/17 05:46 Discharge Plan - Discharge Medications No Action No Known Home Medications [No Known Home Medications] - Follow Up or Referral Follow Up: Joey De La Rosa MD [Physician] - 04/20/17 10:30 am - Forms/Instructions
[2017-04-18] MEDS ORDERED: fentaNYL 100 MCG/2 ML VIAL ONE (14:45)
[2017-04-18] MEDS ORDERED: SEVOFLURANE 1 UNIT/15 MINUTE INH ONE (14:45)
[2017-04-18] MEDS ORDERED: MIDAZOLAM 2 MG/2 ML VIAL ONE (14:45)
[2017-04-18] MEDS: CLINDAMYCIN INJ 600 MG in PREMIX 1 EACH IV SCH ×2 (16:48→18:34)
--- NOTE | 2017-04-18 21:58 | Nephrology Progress Note ---
Nephrology - PN: Subj Interval history: No S OB or GI symptoms. Exam (PN)-Nephrology - Vital Signs Vital signs: Period Temp Pulse Resp BP Sys/King Pulse Ox Last 24 Hr 98.5 F-99.9 F 76-108 16-24 124-170/69-97 94-100 Exam: ENT: Normal Cardiovascular: Regular rate and rhythm. No murmur rub or gallop Lungs: Clear Extremities: No edema - Lab 04/16/17 01:53 04/18/17 05:46 Most recent lab results Calcium 8.3 MG/DL (8.5-10.1) L 04/18/17 05:46 Magnesium 1.3 MG/DL (1.8-2.4) L 04/16/17 01:53 Assessment and Plan (1) Chronic renal failure Status: Acute Assessment and plan: 71-year-old man admitted with: * Basal cell carcinoma, chest. Status post resection. For skin graft today * Chronic renal failure. Creatinine stable. * Gout Current Visit: Yes (2) Rheumatoid arthritis Status: Acute Current Visit: Yes (3) Gout Status: Acute Current Visit: Yes (4) Malignant neoplasm of chest (wall) Status: Acute Current Visit: Yes Specialty Discharge - Follow Up or Referrals Follow up with: Joey De La Rosa MD [Physician] - 04/20/17 10:30 am
[2017-04-19] MEDS: CLINDAMYCIN INJ 600 MG in PREMIX 1 EACH IV SCH ×3 (03:33→20:45)
[2017-04-19] MEDS: LACTATED RINGERS 1,000 ML IV SCH ×3 (03:37→16:31)
[2017-04-19 05:48] LABS: Calcium 8.2 MG/DL (8.5-10.1)
[2017-04-19] MEDS: ALLOPURINOL 100 MG TABLET PO SCH ×2 (08:31→20:45)
[2017-04-19] MEDS: PANTOPRAZOLE 40 MG TABLET PO SCH (08:31)
[2017-04-19] MEDS: SODIUM HYPOCHLORITE 0.25% IRRIG 473 ML BOTTLE TOP SCH (09:23)
--- NOTE | 2017-04-19 10:40 | Hospitalist Progress Note ---
Assessment and Plan - Time spent with patient Time spent with patient: Greater than 30 minutes (1) Malignant neoplasm of chest (wall) Status: Acute Assessment and plan: Defer to surgery. S/P excision and skin graft, BCC. Current Visit: Yes (2) Cellulitis Status: Acute Assessment and plan: Continue clindamycin. Current Visit: Yes (3) Gout Status: Acute Assessment and plan: Continue allopurinol. Current Visit: Yes Hospitalist: Subjective Interval history: No complaints or overnight events. Skin graft performed yesterday. Exam - Constitutional Vitals: Period Temp Pulse Resp BP Sys/King Pulse Ox Last 24 Hr 97.7 F-99.9 F 82-108 16-24 129-170/66-97 95-100 General appearance: no acute distress - Head Head exam: Present: normocephalic, atraumatic - Eye Eye exam: Present: EOMI Pupils: Present: NORA - ENT ENT exam: Present: normal exam - Neck Neck exam: Present: normal inspection - Respiratory Respiratory exam: Present: clear to auscultation bilaterally. Absent: rhonchi, wheezes - Cardiovascular Cardiovascular exam: Present: regular rate and rhythm. Absent: gallop, rubs, systolic murmur - GI/Abdominal GI/Abdominal exam: Present: normal bowel sounds, soft. Absent: distended, firm , guarding, tenderness, rebound - Extremities Exam Extremities exam: Present: normal inspection, other (left heel wound). Absent: calf tenderness, edema - Skin Skin exam: Present: other (chest surgical site within surgical dressing) Results - Labs CBC & BMP: 04/16/17 01:53 04/19/17 04:16 Lab Results: I have reviewed the past 24 hour labs Quality Measures - VTE Contraindication to Pharmacological VTE Prophylaxis: High Risk of Bleeding Specialty Discharge - Follow Up or Referrals Follow up with: Joey De La Rosa MD [Physician] - 04/20/17 10:30 am
--- NOTE | 2017-04-19 13:48 | Event Note ---
His dressing is dry. He has minimal pain. His donor site looks okay. We have had no problems with bleeding. If it is okay with medicine I am ready at any time for him to be discharged home and we will keep his dressing sewn into place and can remove this in the office on Monday. I would like to not have home health try to do dressing changes at this point while he is a fresh skin graft. I think after Monday we would probably have home health do his dressing changes.
--- NOTE | 2017-04-19 14:42 | Discharge Summary ---
Hospital Course - Hospital Course Hospital Course: Mr. Schumacher is a 71-year-old white male with a history of severe gout admitted by Dr. Kerline RATLIFF on 04/13/2017 from the ER with a bleeding enlarging mass in the center of his chest. Dr. Kerline Wing performed an incisional biopsy of the large ulcerated fungating right anterior chest mass and also an incisional biopsy of a 3 x 3.5 cm ulcerated mass on his right hand. Pathology showed a basal cell carcinoma which is consistent with a lesion Dr. Bobo had removed 2000. Patient was taken back to the OR on 04/14/2017 for excision of large bleeding fungating basal cell carcinoma 9.5 x 11 cm defect. Margins were found to be negative and he returned to the OR on 04/18 for split thickness skin graft. Patient's chest dressing is clean and dry and harvest site looks good. Dressings are intact and will not be removed till Monday on Dr. Kerline RATLIFF's follow-up visit. During his hospital stay hospitalist was consulted to help manage his gout. Patient had complaints of knee and ankle pain. Foot and ankle MRI showed joint effusions with no osteomyelitis. 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 Patient was started on antibiotics and treated for joint infection due to gout. He will be discharged home on clindamycin. Patient was also followed by Dr. Richardson from nephrology for chronic renal insufficiency. This did remain stable around 2.4. We will have him follow-up with Dr. Richardson in 1 month. Patient will be discharged home with pain and nausea medicine and antibiotics. He will need to follow-up with Dr. Kerline RATLIFF in his office on Monday for dressing changes. He will be able to start home health for changes after that. Patient will also need to see Dr. De La Rosa the plastic surgeon about his right hand. Care coordination, chart review, and completed discharge paperwork took approximately 37 minutes. - Time spent with patient Time with patient DS: Greater than 30 minutes Diagnosis - Discharge Diagnosis (1) Basal cell carcinoma of anterior chest Status: Acute (2) Hemorrhage Status: Acute (3) Gout Status: Acute (4) Chronic renal failure Status: Acute Specialty Discharge - Follow Up or Referrals Follow up with: Joey De La Rosa MD [Physician] - 04/20/17 10:30 am Discharge Plan - Discharge Data Disposition: Disch To Home/Self Care Condition at Discharge: Stable Discharge Diet: advance to your usual diet Activity: resume usual activities as tolerated Hygiene: keep area(s) dry Driving: other (No driving if taking pain medicines) Contact your physician if you experience:: fever over 101, Redness or swelling Wound / Dressing Care Instructions: Did not get dressings wet or change them until you see Dr. Kerline RATLIFF on Monday morning - Discharge Medications New Clindamycin Cap [Cleocin Cap] 300 mg PO QID #28 capsule Allopurinol [Zyloprim] 100 mg PO BID #60 tablet oxyCODONE/ACETAMINOPHEN 5-325 [Percocet 5-325] 1 tablet PO Q6H #30 tablet - Follow Up or Referral Follow Up: Joey De La Rosa MD [Physician] - 04/20/17 10:30 am Lamonte Churchill III., MD [Physician] - 04/24/17 Paul Richardson MD [Physician] - 1 Month (With BMP) your, PCP [Other] - 1 Week - Forms/Instructions Exam - Constitutional Vitals: Period Temp Pulse Resp BP Sys/King Pulse Ox Last 24 Hr 97.7 F-100.2 F 82-108 16-24 129-170/66-97 95-100 Exam: 71-year-old white male, no acute distress, alert and oriented Chest clear, dressing clean and dry CV regular rate and rhythm Abdomen protuberant, nontender Extremities with excessive gouty tophi throughout joints, no edema Discharge Results Procedures and tests throughout hospitalization: Pending Orders 04/20/17 04:00 Basic Metabolic Panel IN AM Labs on day of discharge: Labs from last 24 hours 04/19/17 04:16 Sodium 136 Potassium 4.0 Chloride 99 Carbon Dioxide 25 Anion Gap 16.0 H BUN 16 Creatinine 2.40 H GFR Calculation 32 BUN/Creatinine Ratio 6.00 Glucose 106 Calculated Osmolality 272.0 L Calcium 8.2 L DS: Provider Date of admission: 04/13/17 14:51 Primary care physician: . No PCP Attending physician on admission: Lamonte Churchill III., Consults: 04/13/17 07:58 Consult to Wound Care - [facility] [CONS] Routine Reason for Wound Care: Wound Care Management Consult Comment: assess wounds right hand and rle, woundcare 04/13/17 08:30 Consult to Physician [CONS] Routine Comment: medical property management coordinator Provider: Callie Burciaga Person Notified: BETHEL YIP [employer] DRIVER Date Notified: 04/13/17 Time Notified: 10:14 04/14/17 12:55 Consult to Physician [CONS] Routine Comment: Renal insufficiency untreated Consulting Provider: Paul Richardson Consulting Provider Notified: Yes When should Consulting Provider be notified: Now Consult to Specialist Group: Nephrology Person Notified: dr. richardson called Date Notified: 04/14/17 Time Notified: 14:03 04/17/17 10:51 Consult to Physician [CONS] Routine Comment: Basal cell hand and chest extending to margins Consulting Provider: Joey De La Rosa Consulting Provider Notified: Yes When should Consulting Provider be notified: Now Person Notified: milly called Date Notified: 04/17/17 Time Notified: 13:35 04/19/17 13:44 Consult to Case Mgmt/Social Srvs [CONS] Routine Reason for Case Mgmt/Social Srvs: Home Health Discharge Planning Consult Comment: SN for wound care when D/C'd from hospital Discharging clinician: ERICH Bashir Expected date of discharge: 04/19/17
--- NOTE | 2017-04-19 20:39 | Nephrology Progress Note ---
Nephrology - PN: Subj Interval history: He underwent skin graft yesterday. Less pain today. No new symptoms Exam (PN)-Nephrology - Vital Signs Vital signs: Period Temp Pulse Resp BP Sys/King Pulse Ox Last 24 Hr 97.7 F-100.5 F 82-103 15-20 129-156/66-91 90-100 Exam: ENT: Normal Cardiovascular: Regular rate and rhythm. No murmur rub or gallop Lungs: Clear Extremities: No edema - Lab 04/16/17 01:53 04/19/17 04:16 Most recent lab results Calcium 8.2 MG/DL (8.5-10.1) L 04/19/17 04:16 Magnesium 1.3 MG/DL (1.8-2.4) L 04/16/17 01:53 Assessment and Plan (1) Chronic renal failure Status: Acute Assessment and plan: 71-year-old man admitted with: * Basal cell carcinoma, chest. Status post resection. * Chronic renal failure. Creatinine stable. Outpatient follow-up scheduled * Gout Current Visit: Yes (2) Rheumatoid arthritis Status: Acute Current Visit: Yes (3) Gout Status: Acute Current Visit: Yes (4) Malignant neoplasm of chest (wall) Status: Acute Current Visit: Yes Specialty Discharge - Follow Up or Referrals Follow up with: your, PCP [Other] - 1 Week Lamonte Churchill III., MD [Physician] - 04/24/17 1:30 pm Joey De La Rosa MD [Physician] - 04/20/17 10:30 am Paul Morse MD [Physician] - 11/21/17 2:30 pm ()
[2017-04-20] MEDS: CLINDAMYCIN INJ 600 MG in PREMIX 1 EACH IV SCH ×2 (04:09→10:49)
[2017-04-20 06:04] LABS: Calcium 8.5 MG/DL (8.5-10.1); Osmolality,Calculated 274.1 MOS/KG (273-304); Potassium 3.9 MMOL/L (3.5-5.1)
[2017-04-20] MEDS: LACTATED RINGERS 1,000 ML IV SCH ×2 (07:38→08:31)
[2017-04-20] MEDS: SODIUM HYPOCHLORITE 0.25% IRRIG 473 ML BOTTLE TOP SCH (08:19)
[2017-04-20] MEDS: ALLOPURINOL 100 MG TABLET PO SCH (08:26)
[2017-04-20] MEDS: PANTOPRAZOLE 40 MG TABLET PO SCH (08:26)
[2017-04-20] MEDS ORDERED: methylPREDNISolone SOD SUC 40 MG/1 ML VIAL IV SCH (10:30)
--- NOTE | 2017-04-20 10:32 | Hospitalist Progress Note ---
Assessment and Plan - Time spent with patient Time spent with patient: Greater than 30 minutes (1) Malignant neoplasm of chest (wall) Status: Acute Assessment and plan: Defer to surgery. S/P excision and skin graft, BCC. Current Visit: Yes (2) Cellulitis Status: Acute Assessment and plan: Continue clindamycin. Current Visit: Yes (3) Gout Status: Acute Assessment and plan: Start methylprednisone, continue allopurinol. Current Visit: Yes Hospitalist: Subjective Interval history: Complains of significant pain in the knees, cannot ambulate, continues to have a fever to a max 100.5. Exam - Constitutional Vitals: Period Temp Pulse Resp BP Sys/King Pulse Ox Last 24 Hr 98.2 F-100.5 F 84-103 15-20 124-162/75-91 90-100 General appearance: no acute distress - Head Head exam: Present: normocephalic, atraumatic - Eye Eye exam: Present: EOMI Pupils: Present: NORA - ENT ENT exam: Present: normal exam - Neck Neck exam: Present: normal inspection - Respiratory Respiratory exam: Present: clear to auscultation bilaterally. Absent: rhonchi, wheezes - Cardiovascular Cardiovascular exam: Present: regular rate and rhythm. Absent: gallop, rubs, systolic murmur - GI/Abdominal GI/Abdominal exam: Present: normal bowel sounds, soft. Absent: distended, firm , guarding, tenderness, rebound - Extremities Exam Extremities exam: Present: normal inspection, other (chronic joint involvement and deifigurement). Absent: calf tenderness, edema Results - Labs CBC & BMP: 04/16/17 01:53 04/20/17 05:04 Lab Results: I have reviewed the past 24 hour labs Quality Measures - VTE Contraindication to Pharmacological VTE Prophylaxis: High Risk of Bleeding Specialty Discharge - Follow Up or Referrals Follow up with: your, PCP [Other] - 1 Week Lamonte Churchill III., MD [Physician] - 04/24/17 1:30 pm Joey De La Rosa MD [Physician] - 05/09/17 11:00 am Paul Morse MD [Physician] - 11/21/17 2:30 pm ()
[2017-04-20] MEDS: ACETAMINOPHEN 325 MG TABLET PO PRN (11:56)
[2017-04-20 13:27] LABS: Basophils % 0.1 % (0.0-0.8); Eosinophils % 0.1 % (0.00-10.9); Hematocrit 31.4 VOL% (42.0-52.0); Immature Granulocytes % 0.5 %; Immature Granulocytes Absolute 0.05 #; Lymphocytes # 0.5 10*3/uL (1.4-4.0); Lymphocytes % 4.4 % (21.2-54.2); Mean Corpuscular HGB Conc 31.8 GM/DL (32-36); Mean Corpuscular Hemoglobin 28 PG (27-34); Mean Corpuscular Volume 87.2 FL (87-102); Mean Platelet Volume 10.2 FL (9.6-12.0); Monocytes # 0.8 10*3/uL (0.11-0.8); Monocytes % 7.4 % (1.7-12.7); Neutrophils # 9.2 10*3/uL (1.4-7.4); Neutrophils % 87.5 % (38.7-73.9); Platelet Count 215 T/CUMM (130-400); Red Cell Distribution Width 14.6 % (9.3-17.3); White Blood Count 10.6 T/CUMM (4-12)
[2017-04-20 15:36] LABS: Lymphocytes 4 % (20-55); Metamyelocytes 3 %; Segmented Neutrophils 91 % (50-85); Total Cells Counted 100
[2017-04-20 15:37] LABS: Platelet Estimate Adequate; Polychromasia Few
[2017-04-20 16:14] VITALS: BP 156/72
== END 2017-04-20 16:47 | disposition home health service (06) | DRG 577 ==
LOC: EDUNIT# → EDBD → N.ED 16:09 → N.EDINP 16:09 → N.3E 18:15
PROVIDERS: ADMIT Surgery; ATTEND Surgery

== ENCOUNTER 2017-09-11 20:07 | Inpatient (IN) ==
[2017-09-11] MEDS ORDERED: ASPIRIN 325 MG TABLET PO STA (21:02)
[2017-09-11 22:15] LABS: Alanine Aminotransferase 22 U/L (16-61); Alkaline Phosphatase 73 U/L (45-117); Aspartate Amino Transferase 15 U/L (0-37); Bilirubin,Total < 0.39 MG/DL (0.2-1.0); Blood Urea Nitrogen 28 MG/DL (7-18); Calcium 8.5 MG/DL (8.5-10.1); Glucose 167 MG/DL (74-106); Potassium 3.9 MMOL/L (3.5-5.1); Sodium 136 MMOL/L (136-145); Total Protein 7.3 G/DL (6.4-8.3)
[2017-09-11] MEDS ORDERED: methylPREDNISolone SOD SUC 125 MG/2 ML VIAL IV STA (23:04)
[2017-09-11] MEDS ORDERED: ALBUTEROL/IPRATROPIUM 3 ML NEB RESP TX STA (23:04)
[2017-09-11] MEDS ORDERED: methylPREDNISolone SOD SUC 125 MG/2 ML VIAL ONE (23:11)
[2017-09-11] MEDS ORDERED: ASPIRIN CHEW 81 MG TABLET PO STA (23:13)
[2017-09-11] MEDS ORDERED: NITROGLYCERIN 2% OINT 1 INCH/GM PACK TOP STA (23:13)
[2017-09-11] MEDS ORDERED: NITROGLYCERIN 2% OINT 1 INCH/GM PACK TOP ONE (23:20)
[2017-09-11 23:21] LABS: Basophils % 0.2 % (0.0-0.8); Eosinophils % 0.1 % (0.00-10.9); Immature Granulocytes % 0.4 %; Immature Granulocytes Absolute 0.03 #; Lymphocytes # 2.1 10*3/uL (1.4-4.0); Lymphocytes % 25.8 % (21.2-54.2); Mean Corpuscular HGB Conc 31.8 GM/DL (32-36); Mean Corpuscular Hemoglobin 30 PG (27-34); Mean Platelet Volume 10.5 FL (9.6-12.0); Monocytes # 0.7 10*3/uL (0.11-0.8); Monocytes % 8.4 % (1.7-12.7); Neutrophils # 5.3 10*3/uL (1.4-7.4); Neutrophils % 65.1 % (38.7-73.9); Platelet Count 270 T/CUMM (130-400); Red Blood Count 2.34 MC/CUMM (3.8-5.5); Red Cell Distribution Width 15.9 % (9.3-17.3); White Blood Count 8.1 T/CUMM (4-12)
[2017-09-12] MEDS ORDERED: PNEUMOCOCCAL VACCINE (13 VALENT) 0.5 ML SYRINGE IM ONE (04:55)
[2017-09-12] MEDS ORDERED: NITROGLYCERIN SL 0.4 MG TABLET SL ONE (08:42)
[2017-09-12] MEDS ORDERED: ALUM/MAG/SIMETH/LIDO VISC 1:1 30 ML BOTTLE PO ONE (08:43)
[2017-09-12] MEDS ORDERED: NITROGLYCERIN SL 0.4 MG TABLET SL PRN (08:44)
[2017-09-12 08:58] LABS: Immature Granulocytes % 0.5 %; Immature Granulocytes Absolute 0.03 #; Lymphocytes # 1.2 10*3/uL (1.4-4.0); Red Cell Distribution Width 15.9 % (9.3-17.3)
[2017-09-12] MEDS ORDERED: SODIUM CHLORIDE 0.45% 1,000 ML IV SCH (09:00)
[2017-09-12 09:03] LABS: Basophils % 0.2 % (0.0-0.8); Hematocrit 27.2 VOL% (42.0-52.0); Lymphocytes % 19.6 % (21.2-54.2); Mean Corpuscular HGB Conc 31.6 GM/DL (32-36); Mean Corpuscular Hemoglobin 30 PG (27-34); Mean Corpuscular Volume 93.2 FL (87-102); Mean Platelet Volume 10.4 FL (9.6-12.0); Monocytes % 0.3 % (1.7-12.7); Neutrophils # 4.7 10*3/uL (1.4-7.4); Neutrophils % 79.4 % (38.7-73.9); White Blood Count 5.9 T/CUMM (4-12)
[2017-09-12 09:05] LABS: Risk Ratio 4.72
[2017-09-12 09:07] LABS: Hemoglobin 8.6 GM/DL (14.0-18.0); Red Blood Count 2.92 MC/CUMM (3.8-5.5)
[2017-09-12 09:08] LABS: Platelet Count 356 T/CUMM (130-400)
[2017-09-12] MEDS: MORPHINE 2 MG/1 ML SYRINGE IV PRN ×3 (09:18→19:16)
[2017-09-12 09:38] LABS: Alanine Aminotransferase 23 U/L (16-61); Albumin 3.4 G/DL (3.4-5.0); Alkaline Phosphatase 83 U/L (45-117); Aspartate Amino Transferase 14 U/L (0-37); Bilirubin,Total < 0.39 MG/DL (0.2-1.0); Blood Urea Nitrogen 25 MG/DL (7-18); Calcium 9.5 MG/DL (8.5-10.1); Glucose 133 MG/DL (74-106); Magnesium 2.4 MG/DL (1.8-2.4); Osmolality,Calculated 280.7 MOS/KG (273-304); Potassium 4.7 MMOL/L (3.5-5.1); Sodium 138 MMOL/L (136-145); Total Protein 7.8 G/DL (6.4-8.3); Troponin I Only 0.031 NG/ML (0.00-0.045)
[2017-09-12 09:41] LABS: Troponin I Only 0.035 NG/ML (0.00-0.045)
[2017-09-12] MEDS: amLODIPine 10 MG TABLET PO SCH (10:49)
[2017-09-12] MEDS: ALLOPURINOL 100 MG TABLET PO SCH (10:49)
[2017-09-12] MEDS: NITROGLYCERIN 2% OINT 1 INCH/GM PACK TOP SCH ×2 (11:19→17:33)
[2017-09-12] MEDS: ASPIRIN CHEW 81 MG TABLET PO SCH (11:19)
[2017-09-12] MEDS: SODIUM BICARB INJ 100 MEQ in SODIUM CHLORIDE 0.45% 1,000 ML IV SCH (11:59)
[2017-09-12 12:17] LABS: Hematocrit 23.2 VOL% (42.0-52.0); Hemoglobin 7.3 GM/DL (14.0-18.0); Immature Granulocytes % 0.5 %; Immature Granulocytes Absolute 0.02 #; Lymphocytes # 0.7 10*3/uL (1.4-4.0); Mean Corpuscular HGB Conc 31.5 GM/DL (32-36); Mean Corpuscular Hemoglobin 30 PG (27-34); Mean Corpuscular Volume 94.7 FL (87-102); Mean Platelet Volume 10.6 FL (9.6-12.0); Neutrophils # 3.5 10*3/uL (1.4-7.4); Neutrophils % 82.5 % (38.7-73.9); Platelet Count 289 T/CUMM (130-400); Red Blood Count 2.45 MC/CUMM (3.8-5.5); Red Cell Distribution Width 15.7 % (9.3-17.3); White Blood Count 4.2 T/CUMM (4-12)
[2017-09-12 12:45] LABS: Ferritin 50.3 ng/ml (26-388)
[2017-09-12] MEDS: PANTOPRAZOLE 40 MG TABLET PO SCH (13:37)
[2017-09-12 16:06] LABS: Troponin I Only 0.029 NG/ML (0.00-0.045)
[2017-09-12] MEDS ORDERED: SODIUM CHLORIDE 0.9% 1,000 ML IV PRN (16:39)
[2017-09-12 16:47] LABS: Hematocrit 22.9 VOL% (42.0-52.0)
[2017-09-12] MEDS: traMADol 50 MG TABLET PO PRN (20:53)
[2017-09-12 21:33] LABS: Troponin I Only 0.042 NG/ML (0.00-0.045)
[2017-09-13] MEDS: NITROGLYCERIN 2% OINT 1 INCH/GM PACK TOP SCH ×4 (01:29→17:27)
[2017-09-13 02:11] LABS: Hematocrit 25.3 VOL% (42.0-52.0); Immature Granulocytes % 0.4 %; Immature Granulocytes Absolute 0.03 #; Mean Corpuscular HGB Conc 31.6 GM/DL (32-36); Mean Corpuscular Hemoglobin 29 PG (27-34); Mean Corpuscular Volume 92.3 FL (87-102); Mean Platelet Volume 10.6 FL (9.6-12.0); Monocytes # 0.5 10*3/uL (0.11-0.8); Monocytes % 6.9 % (1.7-12.7); Neutrophils # 5.7 10*3/uL (1.4-7.4); Neutrophils % 78.7 % (38.7-73.9); Platelet Count 330 T/CUMM (130-400); Red Blood Count 2.74 MC/CUMM (3.8-5.5); Red Cell Distribution Width 16.9 % (9.3-17.3); White Blood Count 7.3 T/CUMM (4-12)
[2017-09-13 02:15] LABS: Free T4 (Free Thyroxine) 0.74 NG/DL (0.76-1.46); Magnesium 2.3 MG/DL (1.8-2.4); Osmolality,Calculated 283.5 MOS/KG (273-304); Potassium 4.8 MMOL/L (3.5-5.1); Thyroid Stimulating Hormone 0.682 uIU/ml (0.358-3.74)
[2017-09-13] MEDS: SODIUM BICARB INJ 100 MEQ in SODIUM CHLORIDE 0.45% 1,000 ML IV SCH ×2 (03:27→17:27)
[2017-09-13 04:57] LABS: Hematocrit 26.6 VOL% (42.0-52.0); Hemoglobin 8.4 GM/DL (14.0-18.0)
[2017-09-13] MEDS: predniSONE 10 MG TABLET PO SCH (08:44)
[2017-09-13] MEDS: traMADol 50 MG TABLET PO PRN ×2 (08:44→18:37)
[2017-09-13] MEDS: ASPIRIN CHEW 81 MG TABLET PO SCH (08:44)
[2017-09-13] MEDS: PANTOPRAZOLE 40 MG TABLET PO SCH ×2 (08:44→20:42)
[2017-09-13] MEDS: ALLOPURINOL 100 MG TABLET PO SCH (08:44)
[2017-09-13] MEDS: amLODIPine 10 MG TABLET PO SCH (08:46)
[2017-09-13] MEDS: CARVEDILOL 3.125 MG TABLET PO SCH ×2 (12:24→20:42)
[2017-09-13 12:51] LABS: Hematocrit 31.1 VOL% (42.0-52.0); Hemoglobin 9.8 GM/DL (14.0-18.0)
[2017-09-13] MEDS ORDERED: SODIUM CHLORIDE 0.9% 1,000 ML IV PRN (13:14)
[2017-09-13] MEDS ORDERED: FUROSEMIDE 20 MG/2 ML VIAL IV PRN (13:14)
[2017-09-13 17:08] LABS: Hematocrit 28.4 VOL% (42.0-52.0); Hemoglobin 9.1 GM/DL (14.0-18.0)
[2017-09-14] MEDS: NITROGLYCERIN 2% OINT 1 INCH/GM PACK TOP SCH ×4 (00:33→17:16)
[2017-09-14] MEDS: SODIUM BICARB INJ 100 MEQ in SODIUM CHLORIDE 0.45% 1,000 ML IV SCH ×3 (01:41→22:53)
[2017-09-14 04:35] LABS: Basophils % 0.1 % (0.0-0.8); Eosinophils % 0.1 % (0.00-10.9); Hematocrit 30.9 VOL% (42.0-52.0); Hemoglobin 9.9 GM/DL (14.0-18.0); Immature Granulocytes % 0.3 %; Immature Granulocytes Absolute 0.03 #; Lymphocytes # 2.8 10*3/uL (1.4-4.0); Lymphocytes % 29.6 % (21.2-54.2); Mean Corpuscular Hemoglobin 29 PG (27-34); Mean Corpuscular Volume 91.2 FL (87-102); Mean Platelet Volume 10.5 FL (9.6-12.0); Monocytes % 10.5 % (1.7-12.7); Neutrophils # 5.7 10*3/uL (1.4-7.4); Neutrophils % 59.4 % (38.7-73.9); Platelet Count 278 T/CUMM (130-400); Red Blood Count 3.39 MC/CUMM (3.8-5.5); Red Cell Distribution Width 16.5 % (9.3-17.3); White Blood Count 9.5 T/CUMM (4-12)
[2017-09-14 05:34] LABS: Calcium 8.2 MG/DL (8.5-10.1); Magnesium 2.1 MG/DL (1.8-2.4); Osmolality,Calculated 283.5 MOS/KG (273-304); Potassium 4.5 MMOL/L (3.5-5.1)
[2017-09-14] MEDS: traMADol 50 MG TABLET PO PRN ×2 (06:13→21:37)
[2017-09-14] MEDS: BISACODYL 5 MG TABLET PO SCH ×2 (08:32→15:33)
[2017-09-14] MEDS: predniSONE 10 MG TABLET PO SCH (08:33)
[2017-09-14] MEDS: ALLOPURINOL 100 MG TABLET PO SCH (08:33)
[2017-09-14] MEDS: CARVEDILOL 3.125 MG TABLET PO SCH ×2 (08:33→21:37)
[2017-09-14] MEDS: PANTOPRAZOLE 40 MG TABLET PO SCH ×2 (08:33→21:37)
[2017-09-14] MEDS: amLODIPine 10 MG TABLET PO SCH (08:34)
[2017-09-14 10:36] LABS: Hematocrit 33.7 VOL% (42.0-52.0); Hemoglobin 10.8 GM/DL (14.0-18.0)
[2017-09-14] MEDS ORDERED: POLYETHYLENE GLYCOL 3350/ELECTROLYTES 4,000 ML BOTTLE PEG ONE (16:00)
[2017-09-14 18:04] LABS: Hematocrit 39.5 VOL% (42.0-52.0)
[2017-09-14 18:06] LABS: Hemoglobin 12.8 GM/DL (14.0-18.0)
[2017-09-14] MEDS ORDERED: MAGNESIUM CITRATE 300 ML BOTTLE PO ONE (21:00)
[2017-09-15] MEDS: NITROGLYCERIN 2% OINT 1 INCH/GM PACK TOP SCH ×5 (00:06→23:06)
[2017-09-15] MEDS: BISACODYL 5 MG TABLET PO SCH (00:06)
[2017-09-15 06:00] LABS: Basophils % 0.3 % (0.0-0.8); Eosinophils % 0.4 % (0.00-10.9); Hematocrit 33.9 VOL% (42.0-52.0); Hemoglobin 10.9 GM/DL (14.0-18.0); Immature Granulocytes % 0.3 %; Immature Granulocytes Absolute 0.02 #; Lymphocytes # 2.8 10*3/uL (1.4-4.0); Lymphocytes % 38.1 % (21.2-54.2); Mean Corpuscular HGB Conc 32.2 GM/DL (32-36); Mean Corpuscular Hemoglobin 29 PG (27-34); Mean Corpuscular Volume 90.6 FL (87-102); Monocytes # 0.6 10*3/uL (0.11-0.8); Monocytes % 8.3 % (1.7-12.7); Neutrophils # 3.9 10*3/uL (1.4-7.4); Neutrophils % 52.6 % (38.7-73.9); Platelet Count 279 T/CUMM (130-400); Red Blood Count 3.74 MC/CUMM (3.8-5.5); Red Cell Distribution Width 15.9 % (9.3-17.3); White Blood Count 7.4 T/CUMM (4-12)
[2017-09-15 06:30] LABS: Calcium 8.5 MG/DL (8.5-10.1); Osmolality,Calculated 281.4 MOS/KG (273-304)
[2017-09-15 07:30] LABS: Troponin I Only 0.577 NG/ML (0.00-0.045)
[2017-09-15] MEDS ORDERED: PROPOFOL 200 MG/20 ML VIAL IV ONE (08:19)
[2017-09-15 10:18] LABS: Troponin I Only 0.524 NG/ML (0.00-0.045)
[2017-09-15] MEDS: PANTOPRAZOLE 40 MG TABLET PO SCH ×2 (11:12→20:26)
[2017-09-15] MEDS: ALLOPURINOL 100 MG TABLET PO SCH (11:12)
[2017-09-15] MEDS: CARVEDILOL 3.125 MG TABLET PO SCH ×2 (11:12→20:28)
[2017-09-15] MEDS: predniSONE 10 MG TABLET PO SCH (11:13)
[2017-09-15] MEDS: amLODIPine 10 MG TABLET PO SCH (11:15)
[2017-09-15 14:18] LABS: Troponin I Only 0.476 NG/ML (0.00-0.045)
[2017-09-15 16:45] LABS: Troponin I Only 0.397 NG/ML (0.00-0.045)
[2017-09-15] MEDS: traMADol 50 MG TABLET PO PRN (20:26)
[2017-09-16 05:48] LABS: Basophils % 0.2 % (0.0-0.8); Eosinophils # 0.1 10*3/uL (0.0-0.87); Hematocrit 38.3 VOL% (42.0-52.0); Hemoglobin 12.2 GM/DL (14.0-18.0); Immature Granulocytes % 0.2 %; Immature Granulocytes Absolute 0.02 #; Lymphocytes # 3.4 10*3/uL (1.4-4.0); Lymphocytes % 37.7 % (21.2-54.2); Mean Corpuscular HGB Conc 31.9 GM/DL (32-36); Mean Corpuscular Hemoglobin 29 PG (27-34); Mean Corpuscular Volume 91.8 FL (87-102); Mean Platelet Volume 10.5 FL (9.6-12.0); Monocytes # 0.7 10*3/uL (0.11-0.8); Neutrophils # 4.8 10*3/uL (1.4-7.4); Neutrophils % 52.9 % (38.7-73.9); Platelet Count 349 T/CUMM (130-400); Red Blood Count 4.17 MC/CUMM (3.8-5.5); Red Cell Distribution Width 15.4 % (9.3-17.3)
[2017-09-16 06:11] LABS: Calcium 9.2 MG/DL (8.5-10.1); Magnesium 2.2 MG/DL (1.8-2.4); Osmolality,Calculated 277.7 MOS/KG (273-304); Potassium 4.3 MMOL/L (3.5-5.1)
[2017-09-16] MEDS: traMADol 50 MG TABLET PO PRN (06:17)
[2017-09-16] MEDS: NITROGLYCERIN 2% OINT 1 INCH/GM PACK TOP SCH ×3 (06:20→17:13)
[2017-09-16] MEDS: ASPIRIN CHEW 81 MG TABLET PO SCH (08:38)
[2017-09-16] MEDS: amLODIPine 10 MG TABLET PO SCH (08:38)
[2017-09-16] MEDS: predniSONE 5 MG TABLET PO SCH (08:38)
[2017-09-16] MEDS: ALLOPURINOL 100 MG TABLET PO SCH (08:38)
[2017-09-16] MEDS: PANTOPRAZOLE 40 MG TABLET PO SCH ×2 (08:39→20:33)
[2017-09-16] MEDS: CARVEDILOL 3.125 MG TABLET PO SCH ×2 (08:39→20:33)
[2017-09-17] MEDS: NITROGLYCERIN 2% OINT 1 INCH/GM PACK TOP SCH ×4 (00:08→17:06)
[2017-09-17] MEDS: CARVEDILOL 3.125 MG TABLET PO SCH ×2 (08:13→21:09)
[2017-09-17] MEDS: ALLOPURINOL 100 MG TABLET PO SCH (08:13)
[2017-09-17] MEDS: predniSONE 5 MG TABLET PO SCH (08:13)
[2017-09-17] MEDS: amLODIPine 10 MG TABLET PO SCH (08:13)
[2017-09-17] MEDS: ASPIRIN CHEW 81 MG TABLET PO SCH (08:13)
[2017-09-17] MEDS: PANTOPRAZOLE 40 MG TABLET PO SCH ×2 (08:13→21:09)
[2017-09-17 12:33] LABS: Basophils % 0.3 % (0.0-0.8); Eosinophils # 0.1 10*3/uL (0.0-0.87); Hematocrit 40.7 VOL% (42.0-52.0); Hemoglobin 12.6 GM/DL (14.0-18.0); Immature Granulocytes % 0.3 %; Immature Granulocytes Absolute 0.03 #; Lymphocytes # 1.8 10*3/uL (1.4-4.0); Lymphocytes % 18.9 % (21.2-54.2); Mean Corpuscular Hemoglobin 29 PG (27-34); Mean Corpuscular Volume 92.9 FL (87-102); Mean Platelet Volume 9.8 FL (9.6-12.0); Monocytes # 0.8 10*3/uL (0.11-0.8); Neutrophils # 6.8 10*3/uL (1.4-7.4); Neutrophils % 71.5 % (38.7-73.9); Platelet Count 325 T/CUMM (130-400); Red Blood Count 4.38 MC/CUMM (3.8-5.5); Red Cell Distribution Width 15.4 % (9.3-17.3); White Blood Count 9.5 T/CUMM (4-12)
[2017-09-17 13:07] LABS: Calcium 8.9 MG/DL (8.5-10.1); Potassium 4.3 MMOL/L (3.5-5.1)
[2017-09-18] MEDS: NITROGLYCERIN 2% OINT 1 INCH/GM PACK TOP SCH ×4 (02:27→17:38)
[2017-09-18 07:29] LABS: Basophils % 0.4 % (0.0-0.8); Eosinophils # 0.2 10*3/uL (0.0-0.87); Eosinophils % 1.8 % (0.00-10.9); Hematocrit 40.8 VOL% (42.0-52.0); Hemoglobin 12.9 GM/DL (14.0-18.0); Immature Granulocytes % 0.4 %; Immature Granulocytes Absolute 0.03 #; Lymphocytes # 2.9 10*3/uL (1.4-4.0); Lymphocytes % 34.9 % (21.2-54.2); Mean Corpuscular HGB Conc 31.6 GM/DL (32-36); Mean Corpuscular Hemoglobin 29 PG (27-34); Mean Corpuscular Volume 92.5 FL (87-102); Mean Platelet Volume 10.4 FL (9.6-12.0); Monocytes # 0.8 10*3/uL (0.11-0.8); Monocytes % 10.2 % (1.7-12.7); Neutrophils # 4.3 10*3/uL (1.4-7.4); Neutrophils % 52.3 % (38.7-73.9); Platelet Count 326 T/CUMM (130-400); Red Blood Count 4.41 MC/CUMM (3.8-5.5); Red Cell Distribution Width 15.4 % (9.3-17.3); White Blood Count 8.2 T/CUMM (4-12)
[2017-09-18 07:56] LABS: Calcium 9.2 MG/DL (8.5-10.1); Osmolality,Calculated 281.5 MOS/KG (273-304); Potassium 3.9 MMOL/L (3.5-5.1)
[2017-09-18] MEDS: amLODIPine 10 MG TABLET PO SCH (09:19)
[2017-09-18] MEDS: ALLOPURINOL 100 MG TABLET PO SCH (09:20)
[2017-09-18] MEDS: ASPIRIN CHEW 81 MG TABLET PO SCH (09:20)
[2017-09-18] MEDS: CARVEDILOL 3.125 MG TABLET PO SCH ×2 (09:20→21:01)
[2017-09-18] MEDS: predniSONE 5 MG TABLET PO SCH (09:20)
[2017-09-18] MEDS: PANTOPRAZOLE 40 MG TABLET PO SCH ×2 (09:20→21:01)
[2017-09-18] MEDS ORDERED: diphenhydrAMINE CAP 25 MG CAPSULE PO ONE (09:48)
[2017-09-18] MEDS ORDERED: MAGNESIUM SULF RIDER 2 GM in PREMIX 1 EACH IV PRN (09:48)
[2017-09-18] MEDS ORDERED: DIAZEPAM 5 MG TABLET PO ONE (09:48)
[2017-09-18] MEDS ORDERED: POTASSIUM CHLORIDE RIDER 10 MEQ in PREMIX 1 EACH IV PRN (09:48)
[2017-09-18] MEDS ORDERED: MIDAZOLAM 2 MG/2 ML VIAL ONE (12:15)
[2017-09-18] MEDS ORDERED: HYDROmorphone 2 MG/1 ML VIAL ONE (12:15)
[2017-09-18] MEDS ORDERED: LIDOCAINE 1% 20 ML VIAL ONE (12:15)
[2017-09-18] MEDS ORDERED: HEPARIN 5,000 UNIT/1 ML VIAL ONE (12:17)
[2017-09-18] MEDS ORDERED: ACETAMINOPHEN 325 MG TABLET PO PRN (13:05)
[2017-09-18] MEDS ORDERED: ONDANSETRON 4 MG/2 ML VIAL IV PRN (13:05)
[2017-09-18] MEDS ORDERED: ZALEPLON 5 MG CAPSULE PO PRN (13:05)
[2017-09-18] MEDS ORDERED: SODIUM CHLORIDE 0.9% 1,000 ML IV SCH (13:30)
[2017-09-18] MEDS: SODIUM BICARB INJ 100 MEQ in SODIUM CHLORIDE 0.45% 1,000 ML IV SCH ×2 (14:31→21:02)
[2017-09-19] MEDS: NITROGLYCERIN 2% OINT 1 INCH/GM PACK TOP SCH ×3 (00:31→14:29)
[2017-09-19 04:10] LABS: Basophils # 0.1 10*3/uL (0.0-0.2); Basophils % 0.6 % (0.0-0.8); Eosinophils # 0.1 10*3/uL (0.0-0.87); Eosinophils % 1.2 % (0.00-10.9); Hematocrit 34.9 VOL% (42.0-52.0); Immature Granulocytes % 0.4 %; Immature Granulocytes Absolute 0.03 #; Lymphocytes # 2.8 10*3/uL (1.4-4.0); Mean Corpuscular HGB Conc 31.5 GM/DL (32-36); Mean Corpuscular Hemoglobin 29 PG (27-34); Mean Corpuscular Volume 91.4 FL (87-102); Mean Platelet Volume 10.1 FL (9.6-12.0); Monocytes % 11.4 % (1.7-12.7); Neutrophils # 4.5 10*3/uL (1.4-7.4); Neutrophils % 53.4 % (38.7-73.9); Platelet Count 232 T/CUMM (130-400); Red Blood Count 3.82 MC/CUMM (3.8-5.5); White Blood Count 8.5 T/CUMM (4-12)
[2017-09-19 04:39] LABS: Calcium 8.4 MG/DL (8.5-10.1); Osmolality,Calculated 284.4 MOS/KG (273-304); Potassium 4.1 MMOL/L (3.5-5.1)
[2017-09-19 04:43] LABS: Calcium 8.4 MG/DL (8.5-10.1); Magnesium 1.8 MG/DL (1.8-2.4); Osmolality,Calculated 282.5 MOS/KG (273-304)
[2017-09-19] MEDS: ASPIRIN CHEW 81 MG TABLET PO SCH (08:39)
[2017-09-19] MEDS: predniSONE 5 MG TABLET PO SCH (08:39)
[2017-09-19] MEDS: amLODIPine 10 MG TABLET PO SCH (08:39)
[2017-09-19] MEDS: CARVEDILOL 3.125 MG TABLET PO SCH (08:39)
[2017-09-19] MEDS: PANTOPRAZOLE 40 MG TABLET PO SCH (08:39)
[2017-09-19] MEDS: ALLOPURINOL 100 MG TABLET PO SCH (08:39)
[2017-09-19] MEDS: SODIUM BICARB INJ 100 MEQ in SODIUM CHLORIDE 0.45% 1,000 ML IV SCH (09:20)
[2017-09-19 16:53] VITALS: BP 146/77
[2017-09-19] MEDS ORDERED: ATORVASTATIN 20 MG TABLET PO SCH (21:00)
== END 2017-09-19 18:40 | disposition home or self-care (01) | DRG 286 ==
LOC: EDUNIT# → EDBD → N.ED 20:07 → N.EDINP 09-12 00:45 → SUPCPDRO 09-12 00:45 → N.4E 09-12 03:42 → N.TELEN 09-12 17:54
PROVIDERS: ADMIT Family Medicine; ATTEND Family Medicine
PROC: COLONBX (2017-09-15 07:05)

== ENCOUNTER 2018-05-10 09:03 | Inpatient (IN) ==
[2018-05-10 13:31] LABS: Basophils # 0.1 10*3/uL (0.0-0.2); Basophils % 0.9 % (0.0-0.8); Eosinophils # 0.3 10*3/uL (0.0-0.87); Eosinophils % 5.3 % (0.00-10.9); Hematocrit 37.3 VOL% (42.0-52.0); Hemoglobin 11.4 GM/DL (14.0-18.0); Immature Granulocytes % 0.2 %; Immature Granulocytes Absolute 0.01 #; Lymphocytes % 35.3 % (21.2-54.2); Mean Corpuscular HGB Conc 30.6 GM/DL (32-36); Mean Corpuscular Hemoglobin 29 PG (27-34); Mean Corpuscular Volume 93.5 FL (87-102); Mean Platelet Volume 11.4 FL (9.6-12.0); Monocytes # 0.5 10*3/uL (0.11-0.8); Monocytes % 8.5 % (1.7-12.7); Neutrophils # 2.8 10*3/uL (1.4-7.4); Neutrophils % 49.8 % (38.7-73.9); Platelet Count 168 T/CUMM (130-400); Red Blood Count 3.99 MC/CUMM (3.8-5.5); Red Cell Distribution Width 16.6 % (9.3-17.3); White Blood Count 5.7 T/CUMM (4-12)
[2018-05-10 14:01] LABS: Albumin 3.5 G/DL (3.4-5.0); Bilirubin,Total 0.5 MG/DL (0.2-1.0); Calcium 8.9 MG/DL (8.5-10.1); Total Protein 8.6 G/DL (6.4-8.3)
[2018-05-10 14:02] LABS: Osmolality,Calculated 287.8 MOS/KG (273-304)
[2018-05-10 16:14] LABS: ABG Base Excess -8.4 MMOL/L (-2.5-2.5); ABG HCO3 16.3 MMOL/L (20-26); ABG PCO2 31.2 MM HG (35-48); ABG PH 7.337 (7.35-7.45); ABG TCO2 17.3 MMOL/L (23-27)
[2018-05-11 07:33] LABS: ABG Base Excess -8.1 MMOL/L (-2.5-2.5); ABG HCO3 17.9 MMOL/L (20-26); ABG Oxygen Saturation 99.7 % (95-100); ABG PCO2 30.8 MM HG (35-48); ABG PH 7.341 (7.35-7.45); ABG TCO2 15.2 MMOL/L (23-27); Glucose Heart Surgery 98 MG/DL (74-106); Hematocrit Heart Surgery 31.3 PERCENT (42-52); Hemoglobin Heart Surgery 10.1 G/DL (14.0-18.0); Ionized Calcium Arterial 1.21 MMOL/L (1.21-1.46); PCO2 Patient Temp Arterial 30.8 MMHG; PH Patient Temp Arterial 7.341; Patient Temperature 37 CELCIUS; Potassium Heart/CVR 3.6 MMOL/L (3.5-5.1); Sodium Heart/CVR 141 MMOL/L (135-145)
[2018-05-11 07:40] LABS: Apearance,Urine CLEAR (Clear); Bilirubin,Urine Negative (Negative); Blood, Urine Negative (Negative); Glucose,Urine (UA) Negative (Negative); Ketones,Urine Negative (Negative); Mucus,Urine Occasional /LPF (Occasional); Nitrite,Urine Negative (Negative); Protein,Urine Negative; Squamous Epithelial Cell,Urine Occasional /HPF (0-10); Urine Color Straw (Yellow); Urine Specific Gravity 1.006 (1.001-1.035); Urine Urobilinogen < 2.0 EU/DL (0.2-1.0); WBC,Urine <1 /HPF (0-6)
[2018-05-11 07:52] LABS: ABG Base Excess -7.9 MMOL/L (-2.5-2.5); ABG Oxygen Saturation 99.5 % (95-100); ABG PCO2 32.9 MM HG (35-48); ABG PH 7.327 (7.35-7.45); ABG TCO2 15.8 MMOL/L (23-27); Glucose Heart Surgery 95 MG/DL (74-106); Hematocrit Heart Surgery 30.3 PERCENT (42-52); Hemoglobin Heart Surgery 9.8 G/DL (14.0-18.0); PCO2 Patient Temp Arterial 32.9 MMHG; PH Patient Temp Arterial 7.327; Patient Temperature 37 CELCIUS; Potassium Heart/CVR 3.4 MMOL/L (3.5-5.1); Sodium Heart/CVR 140 MMOL/L (135-145)
[2018-05-11 09:16] LABS: Hematocrit Heart Surgery 21.2 PERCENT (42-52); Hemoglobin Heart Surgery 6.8 G/DL (14.0-18.0); PCO2 Patient Temp Venous 30.7 MM HG; PH Patient Temp Venous 7.383; PO2 Patient Temp Venous 39.5 MM HG; VBG HCO3 19.2 MEQ/L (24-28); VBG Oxygen Saturation 82.1 %; VBG PCO2 33.8 MMHG (41-51); VBG PH 7.354; VBG PO2 45.3 MMHG (17-40)
[2018-05-11 09:48] LABS: ABG Base Excess -5.6 MMOL/L (-2.5-2.5); ABG HCO3 19.8 MMOL/L (20-26); ABG Oxygen Saturation 99.7 % (95-100); ABG PCO2 35.6 MM HG (35-48); ABG PH 7.346 (7.35-7.45); ABG TCO2 18.2 MMOL/L (23-27); Glucose Heart Surgery 206 MG/DL (74-106); Hematocrit Heart Surgery 25.4 PERCENT (42-52); Hemoglobin Heart Surgery 8.2 G/DL (14.0-18.0); Ionized Calcium Arterial 1.25 MMOL/L (1.21-1.46); PCO2 Patient Temp Arterial 35.6 MMHG; PH Patient Temp Arterial 7.346; Patient Temperature 37 CELCIUS; Potassium Heart/CVR 3.8 MMOL/L (3.5-5.1); Sodium Heart/CVR 136 MMOL/L (135-145)
[2018-05-11 11:08] LABS: ABG Base Excess -3.9 MMOL/L (-2.5-2.5); ABG HCO3 21.2 MMOL/L (20-26); ABG Oxygen Saturation 97.5 % (95-100); ABG PCO2 39.1 MM HG (35-48); ABG PH 7.347 (7.35-7.45); ABG PO2 98.4 MM HG (80-95); ABG TCO2 19.8 MMOL/L (23-27); Glucose Heart Surgery 190 MG/DL (74-106); Hematocrit Heart Surgery 28.8 PERCENT (42-52); Hemoglobin Heart Surgery 9.3 G/DL (14.0-18.0); Potassium Heart/CVR 3.6 MMOL/L (3.5-5.1)
[2018-05-11 11:13] LABS: Basophils % 0.5 % (0.0-0.8); Eosinophils # 0.1 10*3/uL (0.0-0.87); Eosinophils % 2.7 % (0.00-10.9); Hematocrit 30.3 VOL% (42.0-52.0); Hemoglobin 9.6 GM/DL (14.0-18.0); Immature Granulocytes % 0.7 %; Immature Granulocytes Absolute 0.03 #; Lymphocytes # 0.7 10*3/uL (1.4-4.0); Lymphocytes % 16.1 % (21.2-54.2); Mean Corpuscular HGB Conc 31.7 GM/DL (32-36); Mean Corpuscular Hemoglobin 29 PG (27-34); Mean Corpuscular Volume 90.2 FL (87-102); Mean Platelet Volume 11.5 FL (9.6-12.0); Monocytes # 0.2 10*3/uL (0.11-0.8); Monocytes % 4.2 % (1.7-12.7); Neutrophils # 3.1 10*3/uL (1.4-7.4); Neutrophils % 75.8 % (38.7-73.9); Platelet Count 125 T/CUMM (130-400); Red Blood Count 3.36 MC/CUMM (3.8-5.5); Red Cell Distribution Width 16.4 % (9.3-17.3)
[2018-05-11 11:21] LABS: INR 1.1; PT Patient Result 11.7 SECS; Partial Thromboplastin Time 30.9 SECS (0-40)
[2018-05-11 11:35] LABS: CKMB % 3.4 %; Troponin I Only 0.738 NG/ML (0.00-0.045)
[2018-05-11 11:39] LABS: Albumin 3.2 G/DL (3.4-5.0); Bilirubin,Total 0.6 MG/DL (0.2-1.0); Calcium 8.9 MG/DL (8.5-10.1); Total Protein 6.9 G/DL (6.4-8.3)
[2018-05-11 11:40] LABS: Osmolality,Calculated 285.4 MOS/KG (273-304); Potassium 3.7 MMOL/L (3.5-5.1)
[2018-05-11 12:17] LABS: ABG Base Excess -3.8 MMOL/L (-2.5-2.5); ABG HCO3 21.3 MMOL/L (20-26); ABG Oxygen Saturation 98.7 % (95-100); ABG PCO2 37.1 MM HG (35-48); ABG PH 7.364 (7.35-7.45); ABG TCO2 19.5 MMOL/L (23-27); Glucose Heart Surgery 168 MG/DL (74-106); Hematocrit Heart Surgery 28.7 PERCENT (42-52); Hemoglobin Heart Surgery 9.3 G/DL (14.0-18.0); Potassium Heart/CVR 4.1 MMOL/L (3.5-5.1)
[2018-05-11 14:05] LABS: ABG Base Excess -3.4 MMOL/L (-2.5-2.5); ABG HCO3 21.6 MMOL/L (20-26); ABG Oxygen Saturation 99.2 % (95-100); ABG PCO2 35.1 MM HG (35-48); ABG PH 7.387 (7.35-7.45); ABG TCO2 19.6 MMOL/L (23-27); Glucose Heart Surgery 159 MG/DL (74-106); Hematocrit Heart Surgery 26.9 PERCENT (42-52); Hemoglobin Heart Surgery 8.7 G/DL (14.0-18.0); Potassium Heart/CVR 4.1 MMOL/L (3.5-5.1)
[2018-05-11 16:14] LABS: ABG Base Excess -2.7 MMOL/L (-2.5-2.5); ABG HCO3 21.8 MMOL/L (20-26); ABG Oxygen Saturation 98.2 % (95-100); ABG PCO2 36.7 MM HG (35-48); ABG PH 7.392 (7.35-7.45); ABG PO2 134.8 MM HG (80-95); ABG TCO2 22.9 MMOL/L (23-27); Glucose Heart Surgery 154 MG/DL (74-106); Hemoglobin Heart Surgery 9.7 G/DL (14.0-18.0); Potassium Heart/CVR 4.3 MMOL/L (3.5-5.1)
[2018-05-11 18:26] LABS: ABG Base Excess -2.6 MMOL/L (-2.5-2.5); ABG HCO3 22.2 MMOL/L (20-26); ABG Oxygen Saturation 98.7 % (95-100); ABG PCO2 36.9 MM HG (35-48); ABG PH 7.384 (7.35-7.45); ABG TCO2 20.3 MMOL/L (23-27); Glucose Heart Surgery 167 MG/DL (74-106); Hematocrit Heart Surgery 28.2 PERCENT (42-52); Hemoglobin Heart Surgery 9.1 G/DL (14.0-18.0); Potassium Heart/CVR 4.3 MMOL/L (3.5-5.1)
[2018-05-11 20:35] LABS: ABG Base Excess -3.4 MMOL/L (-2.5-2.5); ABG HCO3 21.5 MMOL/L (20-26); ABG Oxygen Saturation 98.2 % (95-100); ABG PCO2 36.6 MM HG (35-48); ABG PH 7.373 (7.35-7.45); ABG TCO2 19.5 MMOL/L (23-27); Glucose Heart Surgery 170 MG/DL (74-106); Hematocrit Heart Surgery 30.6 PERCENT (42-52); Hemoglobin Heart Surgery 9.9 G/DL (14.0-18.0); Potassium Heart/CVR 4.4 MMOL/L (3.5-5.1)
[2018-05-12 02:02] LABS: ABG Base Excess -3.3 MMOL/L (-2.5-2.5); ABG HCO3 21.7 MMOL/L (20-26); ABG Oxygen Saturation 98.7 % (95-100); ABG PCO2 36.3 MM HG (35-48); ABG PH 7.378 (7.35-7.45); ABG TCO2 19.5 MMOL/L (23-27); Glucose Heart Surgery 158 MG/DL (74-106); Hematocrit Heart Surgery 30.6 PERCENT (42-52); Hemoglobin Heart Surgery 9.9 G/DL (14.0-18.0); Potassium Heart/CVR 4.3 MMOL/L (3.5-5.1)
[2018-05-12 05:13] LABS: ABG Base Excess -2.5 MMOL/L (-2.5-2.5); ABG HCO3 22.3 MMOL/L (20-26); ABG Oxygen Saturation 97.6 % (95-100); ABG PCO2 36.7 MM HG (35-48); ABG PH 7.388 (7.35-7.45); ABG TCO2 20.1 MMOL/L (23-27); Glucose Heart Surgery 152 MG/DL (74-106); Hematocrit Heart Surgery 31.3 PERCENT (42-52); Hemoglobin Heart Surgery 10.1 G/DL (14.0-18.0); Potassium Heart/CVR 4.2 MMOL/L (3.5-5.1)
[2018-05-12 05:19] LABS: Hemoglobin 9.9 GM/DL (14.0-18.0); Immature Granulocytes % 0.4 %; Immature Granulocytes Absolute 0.02 #; Lymphocytes # 0.7 10*3/uL (1.4-4.0); Lymphocytes % 13.9 % (21.2-54.2); Mean Corpuscular HGB Conc 31.9 GM/DL (32-36); Mean Corpuscular Hemoglobin 29 PG (27-34); Mean Corpuscular Volume 89.9 FL (87-102); Mean Platelet Volume 11.7 FL (9.6-12.0); Monocytes # 0.1 10*3/uL (0.11-0.8); Monocytes % 2.7 % (1.7-12.7); Platelet Count 132 T/CUMM (130-400); Red Blood Count 3.45 MC/CUMM (3.8-5.5); Red Cell Distribution Width 16.5 % (9.3-17.3); White Blood Count 4.8 T/CUMM (4-12)
[2018-05-12 05:53] LABS: Albumin 3.6 G/DL (3.4-5.0); Bilirubin,Direct 0.2 MG/DL (0.0-0.20); Bilirubin,Total 0.7 MG/DL (0.2-1.0); Calcium 8.4 MG/DL (8.5-10.1); Osmolality,Calculated 288.1 MOS/KG (273-304); Potassium 4.5 MMOL/L (3.5-5.1); Total Protein 6.6 G/DL (6.4-8.3)
[2018-05-12 07:22] LABS: ABG Base Excess -2.9 MMOL/L (-2.5-2.5); ABG HCO3 21.9 MMOL/L (20-26); ABG Oxygen Saturation 97.3 % (95-100); ABG PCO2 40.6 MM HG (35-48); ABG PH 7.351 (7.35-7.45); ABG TCO2 20.5 MMOL/L (23-27); Glucose Heart Surgery 154 MG/DL (74-106); Hematocrit Heart Surgery 30.9 PERCENT (42-52); Potassium Heart/CVR 4.3 MMOL/L (3.5-5.1)
[2018-05-12 10:10] LABS: ABG Base Excess -2.5 MMOL/L (-2.5-2.5); ABG HCO3 22.4 MMOL/L (20-26); ABG PCO2 42.6 MM HG (35-48); ABG PH 7.343 (7.35-7.45); ABG TCO2 21.3 MMOL/L (23-27); Glucose Heart Surgery 153 MG/DL (74-106); Hematocrit Heart Surgery 30.1 PERCENT (42-52); Hemoglobin Heart Surgery 9.7 G/DL (14.0-18.0); Potassium Heart/CVR 4.5 MMOL/L (3.5-5.1)
[2018-05-12 16:16] LABS: ABG Base Excess -0.9 MMOL/L (-2.5-2.5); ABG HCO3 23.7 MMOL/L (20-26); ABG Oxygen Saturation 97.2 % (95-100); ABG PCO2 45.8 MM HG (35-48); ABG PH 7.346 (7.35-7.45); ABG TCO2 22.7 MMOL/L (23-27); Glucose Heart Surgery 152 MG/DL (74-106); Hematocrit Heart Surgery 32.6 PERCENT (42-52); Hemoglobin Heart Surgery 10.6 G/DL (14.0-18.0); Potassium Heart/CVR 4.3 MMOL/L (3.5-5.1)
[2018-05-13 03:55] LABS: ABG Base Excess -0.2 MMOL/L (-2.5-2.5); ABG HCO3 24.3 MMOL/L (20-26); ABG Oxygen Saturation 97.4 % (95-100); ABG PCO2 44.1 MM HG (35-48); ABG PH 7.367 (7.35-7.45); Glucose Heart Surgery 128 MG/DL (74-106); Hematocrit 32.8 VOL% (42.0-52.0); Hematocrit Heart Surgery 32.4 PERCENT (42-52); Hemoglobin 10.4 GM/DL (14.0-18.0); Hemoglobin Heart Surgery 10.5 G/DL (14.0-18.0); Immature Granulocytes % 0.5 %; Immature Granulocytes Absolute 0.04 #; Lymphocytes # 0.8 10*3/uL (1.4-4.0); Lymphocytes % 10.1 % (21.2-54.2); Mean Corpuscular HGB Conc 31.7 GM/DL (32-36); Mean Corpuscular Hemoglobin 29 PG (27-34); Mean Corpuscular Volume 90.9 FL (87-102); Mean Platelet Volume 11.5 FL (9.6-12.0); Monocytes # 0.9 10*3/uL (0.11-0.8); Monocytes % 10.7 % (1.7-12.7); Neutrophils # 6.3 10*3/uL (1.4-7.4); Neutrophils % 78.7 % (38.7-73.9); Platelet Count 140 T/CUMM (130-400); Potassium Heart/CVR 4.4 MMOL/L (3.5-5.1); Red Blood Count 3.61 MC/CUMM (3.8-5.5); Red Cell Distribution Width 16.5 % (9.3-17.3)
[2018-05-13 04:44] LABS: Albumin 3.6 G/DL (3.4-5.0); Bilirubin,Direct 0.15 MG/DL (0.0-0.20); Bilirubin,Total 0.6 MG/DL (0.2-1.0); Calcium 8.2 MG/DL (8.5-10.1); Osmolality,Calculated 289.3 MOS/KG (273-304); Potassium 4.6 MMOL/L (3.5-5.1); Total Protein 6.9 G/DL (6.4-8.3)
[2018-05-13 04:46] LABS: ABG Base Excess 0.4 MMOL/L (-2.5-2.5); ABG HCO3 24.8 MMOL/L (20-26); ABG Oxygen Saturation 97.5 % (95-100); ABG PCO2 44.5 MM HG (35-48); ABG PH 7.372 (7.35-7.45); ABG TCO2 23.5 MMOL/L (23-27); Glucose Heart Surgery 127 MG/DL (74-106); Hematocrit Heart Surgery 32.4 PERCENT (42-52); Hemoglobin Heart Surgery 10.5 G/DL (14.0-18.0); Potassium Heart/CVR 4.3 MMOL/L (3.5-5.1)
[2018-05-13 05:39] LABS: ABG Base Excess 0.6 MMOL/L (-2.5-2.5); ABG HCO3 24.9 MMOL/L (20-26); ABG Oxygen Saturation 97.2 % (95-100); ABG PCO2 44.2 MM HG (35-48); ABG PH 7.377 (7.35-7.45); ABG PO2 99.2 MM HG (80-95); ABG TCO2 23.6 MMOL/L (23-27); Glucose Heart Surgery 126 MG/DL (74-106); Hematocrit Heart Surgery 31.7 PERCENT (42-52); Hemoglobin Heart Surgery 10.3 G/DL (14.0-18.0); Potassium Heart/CVR 4.2 MMOL/L (3.5-5.1)
[2018-05-13 08:40] LABS: ABG Base Excess 1.2 MMOL/L (-2.5-2.5); ABG HCO3 25.4 MMOL/L (20-26); ABG Oxygen Saturation 93.6 % (95-100); ABG PCO2 46.6 MM HG (35-48); ABG PO2 73.7 MM HG (80-95); ABG TCO2 24.5 MMOL/L (23-27); Glucose Heart Surgery 125 MG/DL (74-106); Hematocrit Heart Surgery 31.6 PERCENT (42-52); Hemoglobin Heart Surgery 10.2 G/DL (14.0-18.0); Potassium Heart/CVR 4.3 MMOL/L (3.5-5.1)
[2018-05-14 04:01] LABS: ABG Base Excess 2.2 MMOL/L (-2.5-2.5); ABG HCO3 26.3 MMOL/L (20-26); ABG Oxygen Saturation 95.7 % (95-100); ABG PCO2 44.7 MM HG (35-48); ABG PH 7.396 (7.35-7.45); ABG PO2 81.4 MM HG (80-95); ABG TCO2 24.6 MMOL/L (23-27); Glucose Heart Surgery 127 MG/DL (74-106); Hematocrit Heart Surgery 34.5 PERCENT (42-52); Hemoglobin Heart Surgery 11.2 G/DL (14.0-18.0); Potassium Heart/CVR 4.3 MMOL/L (3.5-5.1)
[2018-05-14 04:17] LABS: Hematocrit 35.4 VOL% (42.0-52.0); Hemoglobin 11.2 GM/DL (14.0-18.0); Immature Granulocytes % 0.7 %; Immature Granulocytes Absolute 0.06 #; Lymphocytes # 0.8 10*3/uL (1.4-4.0); Lymphocytes % 9.3 % (21.2-54.2); Mean Corpuscular HGB Conc 31.6 GM/DL (32-36); Mean Corpuscular Hemoglobin 29 PG (27-34); Mean Corpuscular Volume 90.1 FL (87-102); Monocytes # 0.4 10*3/uL (0.11-0.8); Monocytes % 4.5 % (1.7-12.7); Neutrophils # 7.6 10*3/uL (1.4-7.4); Neutrophils % 85.5 % (38.7-73.9); Platelet Count 145 T/CUMM (130-400); Red Blood Count 3.93 MC/CUMM (3.8-5.5); Red Cell Distribution Width 15.7 % (9.3-17.3); White Blood Count 8.8 T/CUMM (4-12)
[2018-05-14 04:40] LABS: Albumin 3.6 G/DL (3.4-5.0); Bilirubin,Direct 0.11 MG/DL (0.0-0.20); Bilirubin,Total 0.5 MG/DL (0.2-1.0); Calcium 8.1 MG/DL (8.5-10.1); Osmolality,Calculated 289.3 MOS/KG (273-304); Potassium 4.5 MMOL/L (3.5-5.1); Total Protein 7.2 G/DL (6.4-8.3)
[2018-05-15 05:42] LABS: Hematocrit 34.8 VOL% (42.0-52.0); Hemoglobin 10.8 GM/DL (14.0-18.0); Immature Granulocytes % 0.5 %; Immature Granulocytes Absolute 0.04 #; Lymphocytes # 1.6 10*3/uL (1.4-4.0); Mean Corpuscular Hemoglobin 29 PG (27-34); Mean Corpuscular Volume 91.8 FL (87-102); Monocytes # 1.1 10*3/uL (0.11-0.8); Monocytes % 11.9 % (1.7-12.7); Neutrophils # 6.2 10*3/uL (1.4-7.4); Neutrophils % 69.6 % (38.7-73.9); Platelet Count 132 T/CUMM (130-400); Red Blood Count 3.79 MC/CUMM (3.8-5.5); Red Cell Distribution Width 15.7 % (9.3-17.3); White Blood Count 8.9 T/CUMM (4-12)
[2018-05-15 06:00] LABS: Bilirubin,Indirect 0.3 MG/DL (0.0-1.0)
[2018-05-15 06:18] LABS: Alanine Aminotransferase 29 U/L (16-61); Albumin 3.3 G/DL (3.4-5.0); Alkaline Phosphatase 52 U/L (45-117); Aspartate Amino Transferase 21 U/L (0-37); Blood Urea Nitrogen 41 MG/DL (7-18); Glucose 89 MG/DL (74-106); Osmolality,Calculated 291.1 MOS/KG (273-304); Potassium 3.8 MMOL/L (3.5-5.1); Sodium 142 MMOL/L (136-145); Total Protein 7.1 G/DL (6.4-8.3)
[2018-05-16 04:53] LABS: Basophils % 0.1 % (0.0-0.8); Eosinophils # 0.1 10*3/uL (0.0-0.87); Eosinophils % 1.5 % (0.00-10.9); Hematocrit 34.2 VOL% (42.0-52.0); Hemoglobin 10.9 GM/DL (14.0-18.0); Immature Granulocytes % 0.4 %; Immature Granulocytes Absolute 0.03 #; Lymphocytes # 2.7 10*3/uL (1.4-4.0); Lymphocytes % 31.4 % (21.2-54.2); Mean Corpuscular HGB Conc 31.9 GM/DL (32-36); Mean Corpuscular Hemoglobin 29 PG (27-34); Mean Platelet Volume 12.4 FL (9.6-12.0); Monocytes # 0.9 10*3/uL (0.11-0.8); Monocytes % 10.9 % (1.7-12.7); Neutrophils # 4.7 10*3/uL (1.4-7.4); Neutrophils % 55.7 % (38.7-73.9); Platelet Count 138 T/CUMM (130-400); Red Cell Distribution Width 15.8 % (9.3-17.3); White Blood Count 8.5 T/CUMM (4-12)
[2018-05-16 05:22] LABS: Bilirubin,Indirect 0.4 MG/DL (0.0-1.0)
[2018-05-16 05:26] LABS: Alanine Aminotransferase 29 U/L (16-61); Albumin 2.9 G/DL (3.4-5.0); Alkaline Phosphatase 53 U/L (45-117); Aspartate Amino Transferase 19 U/L (0-37); Blood Urea Nitrogen 51 MG/DL (7-18); Calcium 8.2 MG/DL (8.5-10.1); Glucose 104 MG/DL (74-106); Osmolality,Calculated 296.1 MOS/KG (273-304); Potassium 3.5 MMOL/L (3.5-5.1); Sodium 142 MMOL/L (136-145); Total Protein 6.6 G/DL (6.4-8.3)
[2018-05-16 05:27] LABS: Troponin I Only 0.199 NG/ML (0.00-0.045)
[2018-05-18 04:59] LABS: Basophils % 0.1 % (0.0-0.8); Eosinophils # 0.4 10*3/uL (0.0-0.87); Eosinophils % 3.8 % (0.00-10.9); Hematocrit 35.7 VOL% (42.0-52.0); Immature Granulocytes % 0.2 %; Immature Granulocytes Absolute 0.02 #; Lymphocytes # 3.2 10*3/uL (1.4-4.0); Lymphocytes % 34.8 % (21.2-54.2); Mean Corpuscular HGB Conc 30.8 GM/DL (32-36); Mean Corpuscular Hemoglobin 28 PG (27-34); Mean Platelet Volume 12.8 FL (9.6-12.0); Monocytes % 11.1 % (1.7-12.7); Neutrophils # 4.6 10*3/uL (1.4-7.4); Platelet Count 155 T/CUMM (130-400); Red Blood Count 3.88 MC/CUMM (3.8-5.5); Red Cell Distribution Width 15.7 % (9.3-17.3); White Blood Count 9.1 T/CUMM (4-12)
[2018-05-18 05:19] LABS: Bilirubin,Indirect 0.7 MG/DL (0.0-1.0)
[2018-05-18 05:28] LABS: Alanine Aminotransferase 28 U/L (16-61); Albumin 3.5 G/DL (3.4-5.0); Alkaline Phosphatase 70 U/L (45-117); Aspartate Amino Transferase 17 U/L (0-37); Blood Urea Nitrogen 42 MG/DL (7-18); Calcium 8.6 MG/DL (8.5-10.1); Glucose 89 MG/DL (74-106); Osmolality,Calculated 286.5 MOS/KG (273-304); Potassium 4.3 MMOL/L (3.5-5.1); Sodium 139 MMOL/L (136-145); Total Protein 7.2 G/DL (6.4-8.3)
[2018-05-18 05:30] LABS: Troponin I Only 0.096 NG/ML (0.00-0.045)
[2018-05-19 03:42] LABS: Basophils % 0.1 % (0.0-0.8); Eosinophils # 0.3 10*3/uL (0.0-0.87); Eosinophils % 3.8 % (0.00-10.9); Hematocrit 31.8 VOL% (42.0-52.0); Hemoglobin 10.1 GM/DL (14.0-18.0); Immature Granulocytes % 0.4 %; Immature Granulocytes Absolute 0.03 #; Lymphocytes # 2.4 10*3/uL (1.4-4.0); Lymphocytes % 30.3 % (21.2-54.2); Mean Corpuscular HGB Conc 31.8 GM/DL (32-36); Mean Corpuscular Hemoglobin 29 PG (27-34); Mean Corpuscular Volume 89.6 FL (87-102); Monocytes % 12.9 % (1.7-12.7); Neutrophils # 4.1 10*3/uL (1.4-7.4); Neutrophils % 52.5 % (38.7-73.9); Platelet Count 158 T/CUMM (130-400); Red Blood Count 3.55 MC/CUMM (3.8-5.5); Red Cell Distribution Width 15.8 % (9.3-17.3); White Blood Count 7.9 T/CUMM (4-12)
[2018-05-19 04:33] LABS: Alanine Aminotransferase 28 U/L (16-61); Albumin 2.9 G/DL (3.4-5.0); Alkaline Phosphatase 73 U/L (45-117); Aspartate Amino Transferase 17 U/L (0-37); Bilirubin,Indirect 0.7 MG/DL (0.0-1.0); Blood Urea Nitrogen 38 MG/DL (7-18); Calcium 8.7 MG/DL (8.5-10.1); Glucose 100 MG/DL (74-106); Osmolality,Calculated 287.4 MOS/KG (273-304); Potassium 4.2 MMOL/L (3.5-5.1); Sodium 140 MMOL/L (136-145); Total Protein 6.7 G/DL (6.4-8.3)
[2018-05-19 04:36] LABS: Troponin I Only 0.078 NG/ML (0.00-0.045)
[2018-05-19 07:47] VITALS: BP 125/65
== END 2018-05-19 10:40 | disposition home health service (06) | DRG 236 ==
LOC: N.ADMINP 09:03 → N.TELES 12:44 → N.CVR 05-11 09:10 → N.ICU 05-13 10:26 → N.TELES 05-14 13:54

== ENCOUNTER 2018-09-21 10:48 | Inpatient (IN) ==
[2018-09-21] MEDS ORDERED: ASPIRIN 325 MG TABLET PO STA (11:40)
[2018-09-21] MEDS ORDERED: ENOXAPARIN 100 MG/ML SYRINGE SUBCUT STA (11:40)
[2018-09-21] MEDS ORDERED: NITROGLYCERIN SL 0.4 MG TABLET SL PRN (11:40)
[2018-09-21 11:46] LABS: Basophils % 0.4 % (0.0-0.8); Eosinophils # 0.1 10*3/uL (0.0-0.87); Eosinophils % 0.8 % (0.00-10.9); Hematocrit 38.2 VOL% (42.0-52.0); Hemoglobin 11.6 GM/DL (14.0-18.0); Immature Granulocytes % 0.4 %; Immature Granulocytes Absolute 0.03 #; Lymphocytes # 1.4 10*3/uL (1.4-4.0); Mean Corpuscular HGB Conc 30.4 GM/DL (32-36); Mean Corpuscular Hemoglobin 29 PG (27-34); Mean Platelet Volume 10.2 FL (9.6-12.0); Monocytes # 0.9 10*3/uL (0.11-0.8); Monocytes % 10.6 % (1.7-12.7); Neutrophils # 6.1 10*3/uL (1.4-7.4); Neutrophils % 71.8 % (38.7-73.9); Platelet Count 210 T/CUMM (130-400); Red Blood Count 3.94 MC/CUMM (3.8-5.5); Red Cell Distribution Width 14.2 % (9.3-17.3); White Blood Count 8.5 T/CUMM (4-12)
[2018-09-21 11:58] LABS: Albumin 3.5 G/DL (3.4-5.0); Bilirubin,Total 0.7 MG/DL (0.2-1.0); Calcium 8.7 MG/DL (8.5-10.1); Osmolality,Calculated 281.3 MOS/KG (273-304); Potassium 4.4 MMOL/L (3.5-5.1); Total Protein 7.9 G/DL (6.4-8.3)
[2018-09-21] MEDS ORDERED: ONDANSETRON 4 MG/2 ML VIAL IV PRN (14:15)
[2018-09-21] MEDS ORDERED: hydrALAZINE 20 MG/1 ML VIAL IV PRN (14:15)
[2018-09-21] MEDS ORDERED: ACETAMINOPHEN 325 MG TABLET PO PRN (14:15)
[2018-09-21] MEDS ORDERED: MAGNESIUM SULF RIDER 4 GM in PREMIX 1 EACH IV PRN (15:29)
[2018-09-21] MEDS ORDERED: MAGNESIUM SULF RIDER 2 GM in PREMIX 1 EACH IV PRN (15:29)
[2018-09-21] MEDS: CARVEDILOL 3.125 MG TABLET PO SCH (22:54)
[2018-09-22 04:22] LABS: Basophils % 0.3 % (0.0-0.8); Eosinophils # 0.1 10*3/uL (0.0-0.87); Eosinophils % 1.3 % (0.00-10.9); Hemoglobin 10.5 GM/DL (14.0-18.0); Immature Granulocytes % 0.3 %; Immature Granulocytes Absolute 0.02 #; Lymphocytes % 25.9 % (21.2-54.2); Mean Corpuscular Hemoglobin 29 PG (27-34); Mean Corpuscular Volume 96.7 FL (87-102); Mean Platelet Volume 10.7 FL (9.6-12.0); Monocytes % 12.5 % (1.7-12.7); Neutrophils # 4.6 10*3/uL (1.4-7.4); Neutrophils % 59.7 % (38.7-73.9); Platelet Count 227 T/CUMM (130-400); Red Blood Count 3.62 MC/CUMM (3.8-5.5); Red Cell Distribution Width 14.1 % (9.3-17.3); White Blood Count 7.6 T/CUMM (4-12)
[2018-09-22 04:50] LABS: Calcium 8.6 MG/DL (8.5-10.1); Osmolality,Calculated 273.8 MOS/KG (273-304); Potassium 4.3 MMOL/L (3.5-5.1)
[2018-09-22] MEDS: PANTOPRAZOLE 40 MG TABLET PO SCH (08:31)
[2018-09-22] MEDS: CARVEDILOL 3.125 MG TABLET PO SCH ×2 (08:31→21:37)
[2018-09-22] MEDS: ASPIRIN CHEW 81 MG TABLET PO SCH (08:31)
[2018-09-22] MEDS: traZODone 50 MG TABLET PO PRN (21:37)
[2018-09-23] MEDS: ASPIRIN CHEW 81 MG TABLET PO SCH (08:25)
[2018-09-23] MEDS: CARVEDILOL 3.125 MG TABLET PO SCH ×2 (08:25→21:33)
[2018-09-23] MEDS: PANTOPRAZOLE 40 MG TABLET PO SCH (08:25)
[2018-09-23] MEDS: traZODone 50 MG TABLET PO PRN (21:33)
[2018-09-24 05:01] LABS: Basophils % 0.5 % (0.0-0.8); Eosinophils # 0.2 10*3/uL (0.0-0.87); Eosinophils % 3.5 % (0.00-10.9); Hematocrit 35.3 VOL% (42.0-52.0); Hemoglobin 10.6 GM/DL (14.0-18.0); Immature Granulocytes % 0.2 %; Immature Granulocytes Absolute 0.01 #; Lymphocytes % 29.9 % (21.2-54.2); Mean Corpuscular Hemoglobin 29 PG (27-34); Mean Corpuscular Volume 96.4 FL (87-102); Mean Platelet Volume 10.7 FL (9.6-12.0); Monocytes # 0.9 10*3/uL (0.11-0.8); Monocytes % 13.1 % (1.7-12.7); Neutrophils # 3.5 10*3/uL (1.4-7.4); Neutrophils % 52.8 % (38.7-73.9); Platelet Count 242 T/CUMM (130-400); Red Blood Count 3.66 MC/CUMM (3.8-5.5); Red Cell Distribution Width 13.7 % (9.3-17.3); White Blood Count 6.6 T/CUMM (4-12)
[2018-09-24 05:13] LABS: Potassium 4.7 MMOL/L (3.5-5.1)
[2018-09-24] MEDS: ASPIRIN CHEW 81 MG TABLET PO SCH (08:12)
[2018-09-24] MEDS: CARVEDILOL 3.125 MG TABLET PO SCH ×2 (08:13→21:42)
[2018-09-24] MEDS: PANTOPRAZOLE 40 MG TABLET PO SCH (08:13)
[2018-09-24 11:27] LABS: Apearance,Urine CLEAR (Clear); Bilirubin,Urine Negative (Negative); Blood, Urine Negative (Negative); Glucose,Urine (UA) Negative (Negative); Ketones,Urine Negative (Negative); Nitrite,Urine Negative (Negative); Protein,Urine Negative; Urine Color Yellow (Yellow); Urine Specific Gravity 1.008 (1.001-1.035); Urine Urobilinogen < 2.0 EU/DL (0.2-1.0)
[2018-09-24] MEDS: ATORVASTATIN 20 MG TABLET PO SCH (21:42)
[2018-09-25 04:02] LABS: Basophils % 0.8 % (0.0-0.8); Eosinophils # 0.2 10*3/uL (0.0-0.87); Eosinophils % 2.9 % (0.00-10.9); Hematocrit 32.5 VOL% (42.0-52.0); Immature Granulocytes % 0.2 %; Immature Granulocytes Absolute 0.01 #; Lymphocytes # 1.8 10*3/uL (1.4-4.0); Lymphocytes % 35.2 % (21.2-54.2); Mean Corpuscular HGB Conc 30.8 GM/DL (32-36); Mean Corpuscular Hemoglobin 30 PG (27-34); Mean Corpuscular Volume 96.2 FL (87-102); Mean Platelet Volume 10.8 FL (9.6-12.0); Monocytes # 0.8 10*3/uL (0.11-0.8); Neutrophils # 2.4 10*3/uL (1.4-7.4); Neutrophils % 45.9 % (38.7-73.9); Platelet Count 202 T/CUMM (130-400); Red Blood Count 3.38 MC/CUMM (3.8-5.5); Red Cell Distribution Width 13.6 % (9.3-17.3); White Blood Count 5.2 T/CUMM (4-12)
[2018-09-25 04:23] LABS: Calcium 8.6 MG/DL (8.5-10.1); Osmolality,Calculated 278.8 MOS/KG (273-304); Potassium 4.3 MMOL/L (3.5-5.1)
[2018-09-25] MEDS: ASPIRIN CHEW 81 MG TABLET PO SCH (08:34)
[2018-09-25] MEDS: CARVEDILOL 3.125 MG TABLET PO SCH ×2 (08:34→21:32)
[2018-09-25] MEDS: PANTOPRAZOLE 40 MG TABLET PO SCH (08:34)
[2018-09-25] MEDS ORDERED: INFLUENZA VIRUS VACCINE 0.5 ML SYRINGE IM ONE (08:53)
[2018-09-25] MEDS: ATORVASTATIN 20 MG TABLET PO SCH (21:32)
[2018-09-26 09:53] LABS: Calcium 8.9 MG/DL (8.5-10.1); Osmolality,Calculated 283.5 MOS/KG (273-304); Potassium 4.8 MMOL/L (3.5-5.1)
[2018-09-26] MEDS ORDERED: cefTRIAXone 1,000 MG VIAL ONE (12:52)
[2018-09-26] MEDS ORDERED: PROPOFOL 200 MG/20 ML VIAL IV ONE (13:55)
[2018-09-26] MEDS ORDERED: MIDAZOLAM 2 MG/2 ML VIAL ONE (13:56)
[2018-09-26] MEDS ORDERED: fentaNYL 100 MCG/2 ML VIAL ONE (13:56)
[2018-09-26] MEDS ORDERED: ONDANSETRON 4 MG/2 ML VIAL ONE (13:57)
[2018-09-26] MEDS ORDERED: KETAMINE 500 MG/10 ML VIAL ONE (13:57)
[2018-09-26] MEDS: PANTOPRAZOLE 40 MG TABLET PO SCH (15:06)
[2018-09-26] MEDS: CARVEDILOL 3.125 MG TABLET PO SCH ×2 (15:06→20:20)
[2018-09-26] MEDS: ATORVASTATIN 20 MG TABLET PO SCH (20:20)
[2018-09-26] MEDS: traZODone 50 MG TABLET PO PRN (20:20)
[2018-09-27 03:57] LABS: Calcium 8.9 MG/DL (8.5-10.1); Osmolality,Calculated 279.7 MOS/KG (273-304); Potassium 4.8 MMOL/L (3.5-5.1)
[2018-09-27] MEDS: PANTOPRAZOLE 40 MG TABLET PO SCH (09:40)
[2018-09-27] MEDS: CARVEDILOL 3.125 MG TABLET PO SCH (09:40)
[2018-09-27 13:27] VITALS: BP 148/85
== END 2018-09-27 14:00 | disposition home health service (06) | DRG 660 ==
LOC: EDBD → EDUNIT# → N.EDINP 10:48 → N.ED 10:48 → N.TELES 13:31
PROVIDERS: ADMIT Family Medicine; ATTEND Family Medicine

== ENCOUNTER 2019-03-25 21:11 | Inpatient (IN) ==
[2019-03-25] MEDS ORDERED: ONDANSETRON 4 MG/2 ML VIAL IV STA (22:28)
[2019-03-25] MEDS ORDERED: AZITHROMYCIN INJ 500 MG in SODIUM CHLORIDE 0.9% 250 ML IV STA (22:28)
[2019-03-25] MEDS ORDERED: methylPREDNISolone SOD SUC 125 MG/2 ML VIAL IV STA (22:28)
[2019-03-25] MEDS ORDERED: cefTRIAXone 1,000 MG in SODIUM CHLORIDE 0.9% 100 ML IV STA (22:28)
[2019-03-25] MEDS ORDERED: ALBUTEROL 2.5 MG/3 ML NEB RESP TX SCH (22:30)
[2019-03-25 22:43] LABS: Basophils % 0.3 % (0.0-0.8); Eosinophils % 0.1 % (0.00-10.9); Hematocrit 36.7 VOL% (42.0-52.0); Immature Granulocytes % 0.9 %; Immature Granulocytes Absolute 0.14 #; Lymphocytes # 1.4 10*3/uL (1.4-4.0); Lymphocytes % 9.4 % (21.2-54.2); Mean Corpuscular Volume 94.6 FL (87-102); Mean Platelet Volume 10.5 FL (9.6-12.0); Monocytes % 13.8 % (1.7-12.7); Neutrophils % 75.5 % (38.7-73.9); Platelet Count 324 T/CUMM (130-400); Red Blood Count 3.88 MC/CUMM (3.8-5.5); White Blood Count 14.9 T/CUMM (4-12)
[2019-03-25 22:51] LABS: INR 1.1; PT Patient Result 11.9 SECS; Partial Thromboplastin Time 29.6 SECS (0-40)
[2019-03-25 22:52] LABS: Alanine Aminotransferase 44 U/L (16-61); Albumin 2.6 G/DL (3.4-5.0); Alkaline Phosphatase 208 U/L (45-117); Aspartate Amino Transferase 27 U/L (0-37); Blood Urea Nitrogen 23 MG/DL (7-18); Calcium 8.6 MG/DL (8.5-10.1); Glucose 91 MG/DL (74-106); Osmolality,Calculated 273.1 MOS/KG (273-304); Total Protein 8.3 G/DL (6.4-8.3); Troponin I < 0.015 NG/ML (0.00-0.045)
[2019-03-25] MEDS ORDERED: ACETAMINOPHEN 325 MG TABLET PO PRN (23:30)
[2019-03-25] MEDS ORDERED: ONDANSETRON 4 MG/2 ML VIAL IV PRN (23:30)
[2019-03-26 00:26] LABS: Apearance,Urine CLEAR (Clear); Bacteria,Urine Occasional /HPF (Few); Bilirubin,Urine Negative (Negative); Blood, Urine Small mg/dL (Negative); Glucose,Urine (UA) Negative (Negative); Granular Casts,Urine 5 /LPF (0-1); Hyaline Casts,Urine 3 /LPF (0-3); Ketones,Urine Negative (Negative); Mucus,Urine Occasional /LPF (Occasional); Nitrite,Urine Negative (Negative); Protein,Urine 30 MG/DL; RBC,Urine 1 /HPF (0-4); Squamous Epithelial Cell,Urine Occasional /HPF (0-10); Urine Color Yellow (Yellow); Urine Specific Gravity 1.011 (1.001-1.035); Urine Urobilinogen < 2.0 EU/DL (0.2-1.0); WBC,Urine 1 /HPF (0-6)
[2019-03-26 00:40] LABS: Barbiturates Screen,Urine Negative (Negative); Benzodiazepines Screen,Urine Negative (Negative); Cannabinoid Screen,Urine Negative (Negative); Opiate Screen,Urine Negative (Negative); Phencyclidine Screen,Urine Negative (Negative)
[2019-03-26] MEDS: ALBUTEROL/IPRATROPIUM 3 ML NEB RESP TX SCH ×4 (01:34→19:10)
[2019-03-26] MEDS ORDERED: methylPREDNISolone SOD SUC 125 MG/2 ML VIAL IV SCH (08:00)
[2019-03-26] MEDS: PANTOPRAZOLE 40 MG TABLET PO SCH (09:38)
[2019-03-26] MEDS: amLODIPine 10 MG TABLET PO SCH (09:38)
[2019-03-26] MEDS: ASPIRIN EC 81 MG TABLET PO SCH (09:38)
[2019-03-26] MEDS ORDERED: cefTRIAXone 1,000 MG in SYRINGE 1 EACH IV SCH (11:00)
[2019-03-26 12:15] LABS: Basophils % 0.1 % (0.0-0.8); Hematocrit 35.2 VOL% (42.0-52.0); Hemoglobin 10.8 GM/DL (14.0-18.0); Immature Granulocytes % 0.8 %; Lymphocytes # 0.6 10*3/uL (1.4-4.0); Lymphocytes % 4.5 % (21.2-54.2); Mean Corpuscular HGB Conc 30.7 GM/DL (32-36); Mean Corpuscular Volume 93.4 FL (87-102); Mean Platelet Volume 10.4 FL (9.6-12.0); Monocytes % 2.9 % (1.7-12.7); Neutrophils % 91.7 % (38.7-73.9); Platelet Count 324 T/CUMM (130-400); Red Blood Count 3.77 MC/CUMM (3.8-5.5); Red Cell Distribution Width 13.9 % (9.3-17.3); White Blood Count 12.4 T/CUMM (4-12)
[2019-03-26 12:41] LABS: Hypochromasia 1+; Lymphocytes 6 % (20-55); Segmented Neutrophils 91 % (50-85); Total Cells Counted 100
[2019-03-26 12:42] LABS: Platelet Estimate Normal
[2019-03-26 12:46] LABS: Calcium 9.1 MG/DL (8.5-10.1)
[2019-03-26] MEDS: cefTRIAXone 1,000 MG in SYRINGE 1 EACH IV SCH (13:26)
[2019-03-26] MEDS: SKIN HEALING OINT (AQUAPHOR) 50 GM TUBE TOP SCH (15:38)
[2019-03-26] MEDS: ALLOPURINOL 300 MG TABLET PO SCH (21:36)
[2019-03-26] MEDS: methylPREDNISolone SOD SUC 125 MG/2 ML VIAL IV SCH (21:37)
[2019-03-26] MEDS: AZITHROMYCIN INJ 500 MG in SODIUM CHLORIDE 0.9% 250 ML IV SCH (23:43)
[2019-03-27] MEDS: ALBUTEROL/IPRATROPIUM 3 ML NEB RESP TX SCH ×4 (00:20→19:21)
[2019-03-27 05:51] LABS: Basophils % 0.1 % (0.0-0.8); Hematocrit 34.3 VOL% (42.0-52.0); Hemoglobin 10.4 GM/DL (14.0-18.0); Immature Granulocytes % 0.8 %; Immature Granulocytes Absolute 0.11 #; Lymphocytes # 0.7 10*3/uL (1.4-4.0); Mean Corpuscular HGB Conc 30.3 GM/DL (32-36); Mean Corpuscular Volume 93.2 FL (87-102); Mean Platelet Volume 10.5 FL (9.6-12.0); Monocytes % 3.3 % (1.7-12.7); Neutrophils % 90.8 % (38.7-73.9); Platelet Count 322 T/CUMM (130-400); Red Blood Count 3.68 MC/CUMM (3.8-5.5); Red Cell Distribution Width 13.7 % (9.3-17.3); White Blood Count 14.4 T/CUMM (4-12)
[2019-03-27 06:08] LABS: Calcium 8.6 MG/DL (8.5-10.1); Osmolality,Calculated 294.3 MOS/KG (273-304)
[2019-03-27 06:47] LABS: Lymphocytes 7 % (20-55); Platelet Estimate Normal; Segmented Neutrophils 91 % (50-85); Total Cells Counted 100
[2019-03-27] MEDS: amLODIPine 10 MG TABLET PO SCH (09:35)
[2019-03-27] MEDS: PANTOPRAZOLE 40 MG TABLET PO SCH (09:35)
[2019-03-27] MEDS: ASPIRIN EC 81 MG TABLET PO SCH (09:35)
[2019-03-27] MEDS: methylPREDNISolone SOD SUC 125 MG/2 ML VIAL IV SCH ×2 (09:36→21:13)
[2019-03-27] MEDS: SODIUM CHLORIDE 0.9% 1,000 ML IV SCH ×2 (09:37→21:11)
[2019-03-27] MEDS: SKIN HEALING OINT (AQUAPHOR) 50 GM TUBE TOP SCH (09:38)
[2019-03-27] MEDS: cefTRIAXone 1,000 MG in SYRINGE 1 EACH IV SCH (13:35)
[2019-03-28] MEDS: ALBUTEROL/IPRATROPIUM 3 ML NEB RESP TX SCH ×3 (00:32→13:45)
[2019-03-28] MEDS: ALLOPURINOL 300 MG TABLET PO SCH (01:03)
[2019-03-28] MEDS: AZITHROMYCIN INJ 500 MG in SODIUM CHLORIDE 0.9% 250 ML IV SCH (01:03)
[2019-03-28 06:02] LABS: Calcium 8.6 MG/DL (8.5-10.1)
[2019-03-28 07:04] LABS: Basophils % 0.1 % (0.0-0.8); Hematocrit 33.3 VOL% (42.0-52.0); Hemoglobin 10.2 GM/DL (14.0-18.0); Lymphocytes # 0.6 10*3/uL (1.4-4.0); Mean Corpuscular HGB Conc 30.6 GM/DL (32-36); Mean Corpuscular Volume 95.1 FL (87-102); Mean Platelet Volume 10.1 FL (9.6-12.0); Monocytes % 2.5 % (1.7-12.7); Neutrophils % 90.4 % (38.7-73.9); Platelet Count 330 T/CUMM (130-400); Red Cell Distribution Width 13.9 % (9.3-17.3); White Blood Count 10.5 T/CUMM (4-12)
[2019-03-28] MEDS: ASPIRIN EC 81 MG TABLET PO SCH (10:18)
[2019-03-28] MEDS: PANTOPRAZOLE 40 MG TABLET PO SCH (10:18)
[2019-03-28] MEDS: methylPREDNISolone SOD SUC 125 MG/2 ML VIAL IV SCH (10:18)
[2019-03-28] MEDS: amLODIPine 10 MG TABLET PO SCH (10:18)
[2019-03-28] MEDS: SKIN HEALING OINT (AQUAPHOR) 50 GM TUBE TOP SCH (10:19)
[2019-03-28 13:20] VITALS: BP 134/70
== END 2019-03-28 16:22 | disposition home health service (06) | DRG 194 ==
LOC: EDUNIT# → EDBD → N.ED 21:11 → N.EDINP 23:28 → N.5E 23:49
PROVIDERS: ADMIT Family Medicine; ATTEND Family Medicine

== ENCOUNTER 2021-09-01 11:36 | Inpatient (IN) ==
[2021-09-01] MEDS ORDERED: ENOXAPARIN 100 MG/ML SYRINGE SUBCUT STA (12:02)
[2021-09-01] MEDS ORDERED: ASPIRIN 325 MG TABLET PO STA (12:02)
[2021-09-01 12:21] LABS: Basophils % 0.5 % (0.0-0.8); Eosinophils % 0.3 % (0.00-10.9); Hematocrit 20.8 VOL% (42.0-52.0); Hemoglobin 6.5 GM/DL (14.0-18.0); Immature Granulocytes % 0.8 %; Immature Granulocytes Absolute 0.05 #; Lymphocytes # 1.3 10*3/uL (1.4-4.0); Lymphocytes % 20.9 % (21.2-54.2); Mean Corpuscular HGB Conc 31.3 GM/DL (32-36); Mean Corpuscular Volume 106.1 FL (87-102); Mean Platelet Volume 10.7 FL (9.6-12.0); Monocytes % 7.4 % (1.7-12.7); Neutrophils % 70.1 % (38.7-73.9); Platelet Count 184 T/CUMM (130-400); Red Blood Count 1.96 MC/CUMM (3.8-5.5); Red Cell Distribution Width 12.5 % (9.3-17.3); White Blood Count 6.1 T/CUMM (4-12)
[2021-09-01 13:28] LABS: Alanine Aminotransferase 17 U/L (16-61); Albumin 2.7 G/DL (3.4-5.0); Alkaline Phosphatase 41 U/L (45-117); Aspartate Amino Transferase 17 U/L (0-37); Bilirubin,Total < 0.39 MG/DL (0.20-1.00); Blood Urea Nitrogen 71 MG/DL (7-18); Calcium 8.5 MG/DL (8.5-10.1); Carbon Dioxide 22 MMOL/L (21-32); Estimated Glom Filtration Rate 33 ML/MIN; Glucose 112 MG/DL (74-106); Osmolality,Calculated 298.5 MOS/KG (273-304); Potassium 4.4 MMOL/L (3.5-5.1); Sodium 139 MMOL/L (136-145); Total Protein 5.9 G/DL (6.4-8.2)
[2021-09-01] MEDS ORDERED: SODIUM CHLORIDE 0.9% 500 ML IV STA (13:34)
[2021-09-01] MEDS ORDERED: SODIUM CHLORIDE 0.9% 1,000 ML IV PRN (13:34)
[2021-09-01] MEDS ORDERED: NITROGLYCERIN SL 0.4 MG TABLET SL PRN (14:37)
[2021-09-01] MEDS ORDERED: MAGNESIUM SULF RIDER 2 GM/50 ML PREMIX IV PRN (14:38)
[2021-09-01] MEDS ORDERED: MAGNESIUM SULF RIDER 4 GM/100 ML PREMIX IV PRN (14:38)
[2021-09-01] MEDS ORDERED: POTASSIUM CHLORIDE RIDER 10 MEQ/100 ML PREMIX IV PRN (14:38)
[2021-09-01] MEDS: MIRTAZAPINE 15 MG TABLET PO SCH (23:13)
[2021-09-01] MEDS: traZODone 50 MG TABLET PO SCH (23:14)
[2021-09-01] MEDS: PANTOPRAZOLE 40 MG TABLET PO SCH (23:14)
[2021-09-02 05:15] LABS: Basophils # 0.1 10*3/uL (0.0-0.2); Basophils % 0.8 % (0.0-0.8); Eosinophils # 0.1 10*3/uL (0.0-0.87); Eosinophils % 0.8 % (0.00-10.9); Hematocrit 20.2 VOL% (42.0-52.0); Hemoglobin 6.5 GM/DL (14.0-18.0); Immature Granulocytes % 0.5 %; Immature Granulocytes Absolute 0.03 #; Lymphocytes # 1.9 10*3/uL (1.4-4.0); Lymphocytes % 32.1 % (21.2-54.2); Mean Corpuscular HGB Conc 32.2 GM/DL (32-36); Neutrophils % 57.8 % (38.7-73.9); Platelet Count 137 T/CUMM (130-400); Red Cell Distribution Width 16.5 % (9.3-17.3); White Blood Count 5.9 T/CUMM (4-12)
[2021-09-02 05:37] LABS: Albumin 2.2 G/DL (3.4-5.0); Bilirubin,Total 0.5 MG/DL (0.20-1.00); Calcium 8.2 MG/DL (8.5-10.1); Osmolality,Calculated 306.3 MOS/KG (273-304); Potassium 5.3 MMOL/L (3.5-5.1)
[2021-09-02 06:40] LABS: Hematocrit 19.6 VOL% (42.0-52.0)
[2021-09-02 06:41] LABS: Hemoglobin 6.4 GM/DL (14.0-18.0)
[2021-09-02 08:04] LABS: Hematocrit 19.9 VOL% (42.0-52.0)
[2021-09-02 08:09] LABS: Hemoglobin 6.3 GM/DL (14.0-18.0)
[2021-09-02] MEDS ORDERED: SODIUM CHLORIDE 0.9% 1,000 ML IV PRN (08:21)
[2021-09-02] MEDS ORDERED: FUROSEMIDE 20 MG/2 ML VIAL IV ONE (08:22)
[2021-09-02] MEDS: amLODIPine 10 MG TABLET PO SCH (08:45)
[2021-09-02] MEDS: FUROSEMIDE 40 MG TABLET PO SCH (08:45)
[2021-09-02] MEDS: allopurinoL 100 MG TABLET PO SCH (08:45)
[2021-09-02] MEDS: PANTOPRAZOLE 40 MG TABLET PO SCH ×2 (08:45→20:54)
[2021-09-02] MEDS ORDERED: ASPIRIN CHEW 81 MG TABLET PO SCH (09:00)
[2021-09-02 20:15] LABS: Hematocrit 27.2 VOL% (42.0-52.0)
[2021-09-02 20:17] LABS: Hemoglobin 8.9 GM/DL (14.0-18.0)
[2021-09-02] MEDS: traZODone 50 MG TABLET PO SCH (20:54)
[2021-09-02] MEDS: ATORVASTATIN 20 MG TABLET PO SCH (20:54)
[2021-09-02] MEDS: MIRTAZAPINE 15 MG TABLET PO SCH (20:54)
[2021-09-03 00:40] LABS: Hematocrit 24.2 VOL% (42.0-52.0)
[2021-09-03 05:31] LABS: Basophils % 0.6 % (0.0-0.8); Eosinophils # 0.1 10*3/uL (0.0-0.87); Eosinophils % 1.6 % (0.00-10.9); Hematocrit 23.6 VOL% (42.0-52.0); Hemoglobin 7.6 GM/DL (14.0-18.0); Immature Granulocytes % 0.6 %; Immature Granulocytes Absolute 0.04 #; Lymphocytes # 2.1 10*3/uL (1.4-4.0); Lymphocytes % 31.8 % (21.2-54.2); Mean Corpuscular HGB Conc 32.2 GM/DL (32-36); Mean Corpuscular Volume 97.1 FL (87-102); Mean Platelet Volume 10.8 FL (9.6-12.0); Monocytes % 9.5 % (1.7-12.7); NRBC # 0.02 10*3/uL; Neutrophils % 55.9 % (38.7-73.9); Platelet Count 155 T/CUMM (130-400); Red Blood Count 2.43 MC/CUMM (3.8-5.5); Red Cell Distribution Width 17.4 % (9.3-17.3); White Blood Count 6.7 T/CUMM (4-12)
[2021-09-03 05:49] LABS: Calcium 8.4 MG/DL (8.5-10.1); Osmolality,Calculated 310.5 MOS/KG (273-304); Potassium 4.5 MMOL/L (3.5-5.1)
[2021-09-03] MEDS ORDERED: SODIUM CHLORIDE 0.9% 500 ML IV SCH (06:30)
[2021-09-03] MEDS ORDERED: propofoL 200 MG/20 ML VIAL IV ONE (08:41)
[2021-09-03] MEDS ORDERED: LIDOCAINE 2% 5 ML VIAL ONE (08:41)
[2021-09-03] MEDS ORDERED: PHENYLEPHRINE 1 MG/10 ML SYRINGE IV ONE (08:55)
[2021-09-03] MEDS ORDERED: FUROSEMIDE 20 MG/2 ML VIAL IV PRN (09:11)
[2021-09-03 13:47] LABS: Hematocrit 23.5 VOL% (42.0-52.0); Hemoglobin 7.6 GM/DL (14.0-18.0)
[2021-09-03] MEDS: FUROSEMIDE 40 MG TABLET PO SCH (15:50)
[2021-09-03] MEDS: allopurinoL 100 MG TABLET PO SCH (15:50)
[2021-09-03] MEDS: amLODIPine 10 MG TABLET PO SCH (15:50)
[2021-09-03] MEDS: PANTOPRAZOLE 40 MG TABLET PO SCH ×2 (15:50→20:50)
[2021-09-03] MEDS: ATORVASTATIN 20 MG TABLET PO SCH (20:50)
[2021-09-03] MEDS: MIRTAZAPINE 15 MG TABLET PO SCH (20:50)
[2021-09-03] MEDS: traZODone 50 MG TABLET PO SCH (20:50)
[2021-09-03 22:18] LABS: Hematocrit 20.2 VOL% (42.0-52.0); Hemoglobin 6.5 GM/DL (14.0-18.0)
[2021-09-03] MEDS ORDERED: SODIUM CHLORIDE 0.9% 1,000 ML IV PRN (23:07)
[2021-09-04] MEDS ORDERED: SODIUM CHLORIDE 0.9% 1,000 ML IV PRN (08:11)
[2021-09-04 10:25] LABS: Basophils # 0.1 10*3/uL (0.0-0.2); Basophils % 0.7 % (0.0-0.8); Eosinophils # 0.1 10*3/uL (0.0-0.87); Eosinophils % 1.8 % (0.00-10.9); Hematocrit 29.6 VOL% (42.0-52.0); Hemoglobin 9.7 GM/DL (14.0-18.0); Immature Granulocytes % 0.4 %; Immature Granulocytes Absolute 0.03 #; Lymphocytes # 2.2 10*3/uL (1.4-4.0); Lymphocytes % 28.5 % (21.2-54.2); Mean Corpuscular HGB Conc 32.8 GM/DL (32-36); Mean Corpuscular Volume 94.3 FL (87-102); Mean Platelet Volume 10.4 FL (9.6-12.0); Monocytes % 8.2 % (1.7-12.7); Neutrophils % 60.4 % (38.7-73.9); Platelet Count 163 T/CUMM (130-400); Red Blood Count 3.14 MC/CUMM (3.8-5.5); Red Cell Distribution Width 18.3 % (9.3-17.3); White Blood Count 7.7 T/CUMM (4-12)
[2021-09-04 10:44] LABS: Calcium 8.5 MG/DL (8.5-10.1); Osmolality,Calculated 304.5 MOS/KG (273-304)
[2021-09-04] MEDS: FUROSEMIDE 40 MG TABLET PO SCH (11:13)
[2021-09-04] MEDS: allopurinoL 100 MG TABLET PO SCH (11:13)
[2021-09-04] MEDS: PANTOPRAZOLE 40 MG TABLET PO SCH ×2 (11:13→20:40)
[2021-09-04] MEDS: amLODIPine 10 MG TABLET PO SCH (11:13)
[2021-09-04 13:48] LABS: Hematocrit 32.4 VOL% (42.0-52.0); Hemoglobin 10.5 GM/DL (14.0-18.0)
[2021-09-04] MEDS: ATORVASTATIN 20 MG TABLET PO SCH (20:40)
[2021-09-04] MEDS: traZODone 50 MG TABLET PO SCH (20:40)
[2021-09-04] MEDS: MIRTAZAPINE 15 MG TABLET PO SCH (20:42)
[2021-09-04 22:35] LABS: Hematocrit 28.3 VOL% (42.0-52.0); Hemoglobin 9.4 GM/DL (14.0-18.0)
[2021-09-05 05:11] LABS: Basophils % 0.5 % (0.0-0.8); Eosinophils # 0.2 10*3/uL (0.0-0.87); Eosinophils % 2.2 % (0.00-10.9); Hematocrit 28.1 VOL% (42.0-52.0); Hemoglobin 9.3 GM/DL (14.0-18.0); Immature Granulocytes % 0.4 %; Immature Granulocytes Absolute 0.03 #; Lymphocytes # 1.6 10*3/uL (1.4-4.0); Lymphocytes % 21.1 % (21.2-54.2); Mean Corpuscular HGB Conc 33.1 GM/DL (32-36); Mean Corpuscular Volume 94.6 FL (87-102); Mean Platelet Volume 10.7 FL (9.6-12.0); Monocytes % 9.7 % (1.7-12.7); Neutrophils % 66.1 % (38.7-73.9); Platelet Count 166 T/CUMM (130-400); Red Blood Count 2.97 MC/CUMM (3.8-5.5); Red Cell Distribution Width 18.2 % (9.3-17.3); White Blood Count 7.4 T/CUMM (4-12)
[2021-09-05 05:40] LABS: Calcium 8.6 MG/DL (8.5-10.1); Potassium 3.6 MMOL/L (3.5-5.1)
[2021-09-05 06:48] LABS: Hematocrit 28.1 VOL% (42.0-52.0); Hemoglobin 9.1 GM/DL (14.0-18.0)
[2021-09-05] MEDS: amLODIPine 10 MG TABLET PO SCH (09:12)
[2021-09-05] MEDS: BISACODYL 5 MG TABLET PO SCH ×3 (09:12→23:08)
[2021-09-05] MEDS: FUROSEMIDE 40 MG TABLET PO SCH (09:12)
[2021-09-05] MEDS: allopurinoL 100 MG TABLET PO SCH (09:12)
[2021-09-05] MEDS: PANTOPRAZOLE 40 MG TABLET PO SCH ×2 (09:12→21:41)
[2021-09-05 15:02] LABS: Hematocrit 31.2 VOL% (42.0-52.0); Hemoglobin 9.9 GM/DL (14.0-18.0)
[2021-09-05] MEDS ORDERED: POLYETHYLENE GLYCOL 3350/ELECTROLYTES 4,000 ML BOTTLE PEG ONE (16:00)
[2021-09-05] MEDS ORDERED: MAGNESIUM CITRATE 300 ML BOTTLE PO ONE (21:00)
[2021-09-05] MEDS: MIRTAZAPINE 15 MG TABLET PO SCH (21:41)
[2021-09-05] MEDS: ATORVASTATIN 20 MG TABLET PO SCH (21:41)
[2021-09-05] MEDS: traZODone 50 MG TABLET PO SCH (21:43)
[2021-09-05 22:36] LABS: Hematocrit 31.9 VOL% (42.0-52.0); Hemoglobin 10.3 GM/DL (14.0-18.0)
[2021-09-06 05:44] LABS: Basophils % 0.5 % (0.0-0.8); Eosinophils % 0.7 % (0.00-10.9); Hematocrit 29.7 VOL% (42.0-52.0); Hemoglobin 9.6 GM/DL (14.0-18.0); Immature Granulocytes % 0.5 %; Immature Granulocytes Absolute 0.03 #; Lymphocytes % 16.7 % (21.2-54.2); Mean Corpuscular HGB Conc 32.3 GM/DL (32-36); Mean Corpuscular Volume 95.5 FL (87-102); Mean Platelet Volume 10.6 FL (9.6-12.0); Monocytes % 11.8 % (1.7-12.7); Neutrophils % 69.8 % (38.7-73.9); Platelet Count 183 T/CUMM (130-400); Red Blood Count 3.11 MC/CUMM (3.8-5.5); Red Cell Distribution Width 17.9 % (9.3-17.3); White Blood Count 5.9 T/CUMM (4-12)
[2021-09-06 06:08] LABS: Calcium 8.4 MG/DL (8.5-10.1); Osmolality,Calculated 287.1 MOS/KG (273-304); Potassium 3.1 MMOL/L (3.5-5.1)
[2021-09-06] MEDS: SODIUM CHLORIDE 0.9% 500 ML IV SCH (07:59)
[2021-09-06] MEDS ORDERED: ePHEDrine 50 MG/ML VIAL ONE (09:16)
[2021-09-06] MEDS ORDERED: ONDANSETRON 4 MG/2 ML VIAL ONE (09:25)
[2021-09-06] MEDS: allopurinoL 100 MG TABLET PO SCH (10:25)
[2021-09-06] MEDS: PANTOPRAZOLE 40 MG TABLET PO SCH ×2 (10:25→20:45)
[2021-09-06] MEDS: FUROSEMIDE 40 MG TABLET PO SCH (10:25)
[2021-09-06] MEDS: amLODIPine 10 MG TABLET PO SCH (10:25)
[2021-09-06] MEDS: traZODone 50 MG TABLET PO SCH (20:45)
[2021-09-06] MEDS: ATORVASTATIN 20 MG TABLET PO SCH (20:45)
[2021-09-06] MEDS: MIRTAZAPINE 15 MG TABLET PO SCH (20:45)
[2021-09-07 06:48] LABS: Basophils % 0.4 % (0.0-0.8); Eosinophils # 0.1 10*3/uL (0.0-0.87); Eosinophils % 1.8 % (0.00-10.9); Hematocrit 27.3 VOL% (42.0-52.0); Hemoglobin 8.7 GM/DL (14.0-18.0); Immature Granulocytes % 0.7 %; Immature Granulocytes Absolute 0.04 #; Lymphocytes # 1.1 10*3/uL (1.4-4.0); Lymphocytes % 20.4 % (21.2-54.2); Mean Corpuscular HGB Conc 31.9 GM/DL (32-36); Mean Corpuscular Volume 95.5 FL (87-102); Mean Platelet Volume 10.9 FL (9.6-12.0); Monocytes % 12.3 % (1.7-12.7); Neutrophils % 64.4 % (38.7-73.9); Platelet Count 190 T/CUMM (130-400); Red Blood Count 2.86 MC/CUMM (3.8-5.5); Red Cell Distribution Width 17.3 % (9.3-17.3); White Blood Count 5.6 T/CUMM (4-12)
[2021-09-07] MEDS: SODIUM CHLORIDE 0.9% 500 ML IV SCH (07:11)
[2021-09-07 07:15] LABS: Calcium 8.1 MG/DL (8.5-10.1); Osmolality,Calculated 280.2 MOS/KG (273-304); Potassium 3.3 MMOL/L (3.5-5.1)
[2021-09-07] MEDS: FUROSEMIDE 40 MG TABLET PO SCH (09:03)
[2021-09-07] MEDS: allopurinoL 100 MG TABLET PO SCH (09:04)
[2021-09-07] MEDS: amLODIPine 10 MG TABLET PO SCH (09:04)
[2021-09-07] MEDS: PANTOPRAZOLE 40 MG TABLET PO SCH (09:04)
[2021-09-07 09:33] LABS: Hematocrit 28.9 VOL% (42.0-52.0); Hemoglobin 9.3 GM/DL (14.0-18.0)
[2021-09-07 12:09] VITALS: BP 132/63
== END 2021-09-07 12:18 | disposition home or self-care (01) | DRG 378 ==
LOC: EDUNIT# → EDBD → N.EDINP 11:36 → N.ED 11:36 → N.TELEN 17:33
PROVIDERS: ADMIT Family Medicine; ATTEND Family Medicine

== ENCOUNTER 2022-05-16 13:25 | Observation (INO) ==
[2022-05-16] MEDS ORDERED: SODIUM CHLORIDE 0.9% 1,000 ML IV STA (13:44)
[2022-05-16 15:19] LABS: Bilirubin,Urine Negative (Negative); Blood, Urine Negative (Negative); Glucose,Urine (UA) Negative (Negative); Ketones,Urine Negative (Negative); Nitrite,Urine Negative (Negative); Protein,Urine 100 mg/dL (Negative); Urine Appearance Clear (Clear); Urine Color Yellow (Yellow); Urine Urobilinogen 0.2 eU/dL (<2.0); Urine pH 5.5 (4.5-8.0)
[2022-05-16 15:21] LABS: Mucus,Urine Occasional /LPF (Occasional); RBC,Urine 1 /HPF (0-4); Squamous Epithelial Cell,Urine Occasional /HPF (0-10)
[2022-05-16 15:23] LABS: Basophils % 0.5 % (0.0-0.8); Eosinophils # 0.1 10*3/uL (0.0-0.87); Eosinophils % 2.7 % (0.00-10.9); Hematocrit 39.2 VOL% (42.0-52.0); Hemoglobin 12.1 GM/DL (14.0-18.0); Immature Granulocytes % 0.3 %; Immature Granulocytes Absolute 0.01 #; Lymphocytes # 1.2 10*3/uL (1.4-4.0); Lymphocytes % 33.2 % (21.2-54.2); Mean Corpuscular HGB Conc 30.9 GM/DL (32-36); Mean Corpuscular Volume 103.7 FL (87-102); Monocytes # 0.5 10*3/uL (0.11-0.8); Neutrophils % 49.3 % (38.7-73.9); Platelet Count 132 T/CUMM (130-400); Red Blood Count 3.78 MC/CUMM (3.8-5.5); Red Cell Distribution Width 12.9 % (9.3-17.3); White Blood Count 3.7 T/CUMM (4-12)
[2022-05-16 15:35] LABS: PT Patient Result 10.7 SECS (10.5-12.0)
[2022-05-16 15:42] LABS: Alanine Aminotransferase 20 U/L (16-61); Albumin 3.5 G/DL (3.4-5.0); Alkaline Phosphatase 65 U/L (45-117); Aspartate Amino Transferase 21 U/L (0-37); Blood Urea Nitrogen 54 MG/DL (7-18); Calcium 8.3 MG/DL (8.5-10.1); Carbon Dioxide 19 MMOL/L (21-32); Chloride 114 MMOL/L (98-107); Glucose 70 MG/DL (74-106); Osmolality,Calculated 295.1 MOS/KG (273-304); Potassium 4.4 MMOL/L (3.5-5.1); Sodium 142 MMOL/L (136-145); Total Protein 7.2 G/DL (6.4-8.2)
[2022-05-16] MEDS ORDERED: SODIUM CHLORIDE 0.9% 500 ML IV STA (15:48)
[2022-05-16] MEDS ORDERED: ACETAMINOPHEN 325 MG TABLET PO ONE (15:48)
[2022-05-16 15:50] LABS: Barbiturates Screen,Urine Negative (Negative); Benzodiazepines Screen,Urine Negative (Negative); Cannabinoid Screen,Urine Negative (Negative); Opiate Screen,Urine Negative (Negative); Phencyclidine Screen,Urine Negative (Negative)
[2022-05-16] MEDS ORDERED: ONDANSETRON 4 MG/2 ML VIAL IV PRN (16:03)
[2022-05-16] MEDS ORDERED: ACETAMINOPHEN 325 MG TABLET PO PRN (16:03)
[2022-05-16] MEDS: SODIUM CHLORIDE 0.9% 1,000 ML IV SCH (18:25)
[2022-05-16] MEDS: DOCUSATE SODIUM 100 MG CAPSULE PO SCH (20:04)
[2022-05-16] MEDS: ENOXAPARIN 30 MG/0.3 ML SYRINGE SUBCUT SCH (20:04)
[2022-05-17] MEDS: SODIUM CHLORIDE 0.9% 1,000 ML IV SCH ×3 (01:57→16:38)
[2022-05-17 05:15] LABS: Basophils % 1.4 % (0.0-0.8); Eosinophils # 0.3 10*3/uL (0.0-0.87); Eosinophils % 8.9 % (0.00-10.9); Hematocrit 37.9 VOL% (42.0-52.0); Hemoglobin 11.7 GM/DL (14.0-18.0); Lymphocytes # 1.4 10*3/uL (1.4-4.0); Lymphocytes % 46.4 % (21.2-54.2); Mean Corpuscular HGB Conc 30.9 GM/DL (32-36); Mean Platelet Volume 10.8 FL (9.6-12.0); Monocytes # 0.4 10*3/uL (0.11-0.8); Monocytes % 12.4 % (1.7-12.7); Neutrophils % 30.9 % (38.7-73.9); Platelet Count 128 T/CUMM (130-400); Red Blood Count 3.68 MC/CUMM (3.8-5.5); Red Cell Distribution Width 12.7 % (9.3-17.3); White Blood Count 2.9 T/CUMM (4-12)
[2022-05-17 05:33] LABS: Atypical Lymphocytes Few; Calcium 8.1 MG/DL (8.5-10.1); Eosinophils 11 % (0-10); Lymphocytes 41 % (20-55); Macrocytosis Slight; Osmolality,Calculated 293.1 MOS/KG (273-304); Potassium 4.4 MMOL/L (3.5-5.1); Total Cells Counted 100
[2022-05-17] MEDS: PANTOPRAZOLE 40 MG TABLET PO SCH (08:30)
[2022-05-17] MEDS: DOCUSATE SODIUM 100 MG CAPSULE PO SCH ×2 (08:30→20:35)
[2022-05-17] MEDS: ENOXAPARIN 30 MG/0.3 ML SYRINGE SUBCUT SCH (20:35)
[2022-05-18] MEDS: SODIUM CHLORIDE 0.9% 1,000 ML IV SCH ×2 (00:35→09:07)
[2022-05-18 08:11] VITALS: BP 157/84
[2022-05-18] MEDS: DOCUSATE SODIUM 100 MG CAPSULE PO SCH (09:07)
[2022-05-18] MEDS: PANTOPRAZOLE 40 MG TABLET PO SCH (09:08)
== END 2022-05-18 12:32 | disposition left against medical advice (07) ==
LOC: EDUNIT# → EDBD → N.ED 13:25 → N.EDINP 13:25 → N.TELES 16:56
PROVIDERS: ADMIT Family Medicine; ATTEND Family Medicine